=== PATIENT | female | born 1930 | race Caucasian/White ===

== ENCOUNTER 2019-01-08 12:43 | Observation (INO) ==
[2019-01-08] MEDS ORDERED: Ondansetron 4 MG/2 ML VIAL IVP ONE (13:15)
[2019-01-08] MEDS ORDERED: 0.9 % Sodium Chloride 500 ML IVC ONE (13:15)
[2019-01-08 13:43] LABS: Hematocrit 37.8 % (35.3-44.9); Hemoglobin 12.2 g/dL (11.5-15.4); Mean Corpuscular HGB Conc 32.3 g/dL (31.6-35.5); Mean Corpuscular Hemoglobin 31.1 pg (28.0-33.3); Mean Corpuscular Volume 96.4 fL (83.0-100.0); Mean Platelet Volume 9.5 fL (9.4-12.4); Platelet Count 262 K/mcL (140-400); Red Blood Count 3.92 M/mcL (3.82-4.97); Red Cell Distribution Width 12.9 % (11.5-14.5); Segmented Neutrophils % 82.6 %
[2019-01-08 13:44] LABS: Basophils % 0.2 %; Eosinophils % 0.3 %; Immature Granulocytes % 0.4 % (0-4); Lymphocytes # 1.1 K/mcL (0.6-4.6); Lymphocytes % 11.4 %; Monocytes # 0.5 K/mcL (0.0-1.3); Monocytes % 5.1 %; Neutrophils # 7.9 K/mcL (1.6-8.9)
--- NOTE | 2019-01-08 13:48 | Emergency Department Note ---
Disposition Clinical Impression: Difficulty in swallowing, Achalasia of esophagus Disposition: Admitted As Inpatient Condition: Fair General Adult HPI - General Chief complaint: ED General Medical Stated complaint: esophagus issue Time Seen by Provider: 01/08/19 12:53 Source: EMS Limitations: no limitations - History of Present Illness Pain Scale: 0 - Related Data Home Medications Medication Instructions Recorded Confirmed RX: Lisinopril [Zestril] 20 mg PO DAILY 02/24/17 01/08/19 RX: Aspirin [Lo-Dose Aspirin EC] 81 mg PO DAILY 09/08/17 01/08/19 RX: Metoprolol [Lopressor] 12.5 mg PO BID 01/08/19 01/08/19 Rosuvastatin Calcium [Crestor] 10 mg PO DAILY 01/08/19 01/08/19 Previous Rx's Medication Instructions Recorded RX: Clopidogrel [Plavix] 75 mg PO DAILY #30 tablet 09/08/17 Allergies Allergy/AdvReac Type Severity Reaction Status Date / Time No Known Allergies Allergy Verified 01/08/19 12:59 Past Medical History - Past Medical History Medical history: Reports: arthritis, diabetes, hyperlipidemia, hypertension, renal disease Surgical history: Reports: appendectomy, cancer surgery, hysterectomy Psychiatric history: Reports: no psych history - Social History Smoking Status: Former smoker Smokeless Tobacco Status: No Alcohol use: Reports: none Drug use: Reports: none Physical Exam - General Limitations: no limitations General appearance: alert, in no apparent distress Course Vital Signs Temperature 98.5 F 01/08/19 12:46 Pulse Rate 66 01/08/19 12:46 Respiratory Rate 15 01/08/19 12:46 Blood Pressure 141/81 01/08/19 12:46 O2 Sat by Pulse Oximetry 100 01/08/19 12:46 Temperature 98.0 F 01/08/19 19:26 Pulse Rate 65 01/08/19 19:26 Respiratory Rate 14 01/08/19 19:26 Blood Pressure 128/70 01/08/19 19:26 O2 Sat by Pulse Oximetry 93 01/08/19 19:26 Oxygen Delivery Oxygen Delivery Nasal Cannula Medical Decision Making - Lab Data Result diagrams: 01/08/19 13:33 01/08/19 13:33 Lab Results 01/08/19 01/08/19 Range/Units 13:33 13:33 WBC 9.6 (4.3-11.1) K/mcL RBC 3.92 (3.82-4.97) M/mcL Hgb 12.2 (11.5-15.4) g/dL Hct 37.8 (35.3-44.9) % MCV 96.4 (83.0-100.0) fL MCH 31.1 (28.0-33.3) pg MCHC 32.3 (31.6-35.5) g/dL RDW 12.9 (11.5-14.5) % Plt Count 262 (140-400) K/mcL MPV 9.5 (9.4-12.4) fL Immature Gran % 0.4 (0-4) % Seg Neutrophils % 82.6 % Lymphocytes % 11.4 % Monocytes % 5.1 % Eosinophils % 0.3 % Basophils % 0.2 % Neutrophils # 7.9 (1.6-8.9) K/mcL Lymphocytes # 1.1 (0.6-4.6) K/mcL Monocytes # 0.5 (0.0-1.3) K/mcL Eosinophils # 0.0 (0.0-0.6) K/mcL Basophils # 0.0 (0.0-0.2) K/mcL Sodium 140 (136-145) mEq/L Potassium 3.9 (3.5-5.1) mEq/L Chloride 103 (98-107) mEq/L Carbon Dioxide 26 (23-29) mEq/L BUN 27 H (8-23) mg/dL Creatinine 1.23 H (0.60-1.20) mg/dL Est GFR ( Amer) 50 L (> 60) Est GFR (Non-Af Amer) 41 L (> 60) BUN/Creatinine Ratio 22 (6-26) Glucose 103 (70-105) mg/dL Calculated Osmolality 295 (280-300) Calcium 9.4 (8.6-10.3) mg/dL Total Bilirubin 0.7 (0.3-1.0) mg/dL Direct Bilirubin 0.1 (0.0-0.2) mg/dL Indirect Bilirubin 0.6 (0.0-1.2) mg/dL AST 20 (13-39) Units/L ALT 13 (7-52) Units/L Alkaline Phosphatase 74 (34-104) Units/L Troponin I < 0.03 (< 0.04) ng/mL Serum Total Protein 7.6 (6.4-8.9) g/dL Albumin 3.9 (3.5-5.7) g/dL Globulin 3.7 H (2.4-3.5) g/dL Albumin/Globulin Ratio 1.1 (1.1-2.2) Lipase 29 (11-82) Units/L Attestation Statement - Attestation Attestation: I examined this patient and my medical decision-making was reviewed with the Resident Physician. I agree with the documented findings, disposition and treatment plan as described except to the extent set forth below. [id number] time provided Patient resident care of her family. She has a history of esophageal strictures that had required Botox treatment and dilation. Recently she has experienced regurgitation and nausea and vomiting. She appears in no acute distress on exam
[2019-01-08 14:05] LABS: Troponin I < 0.03 ng/mL (< 0.04)
[2019-01-08 14:06] LABS: Alanine Aminotransferase 13 Units/L (7-52); Albumin 3.9 g/dL (3.5-5.7); Albumin/Globulin Ratio 1.1 (1.1-2.2); Alkaline Phosphatase 74 Units/L (34-104); Aspartate Amino Transferase 20 Units/L (13-39); BUN/Creatinine Ratio 22 (6-26); Bilirubin,Direct 0.1 mg/dL (0.0-0.2); Bilirubin,Indirect 0.6 mg/dL (0.0-1.2); Bilirubin,Total 0.7 mg/dL (0.3-1.0); Blood Urea Nitrogen 27 mg/dL (8-23); Calcium 9.4 mg/dL (8.6-10.3); Carbon Dioxide 26 mEq/L (23-29); Chloride 103 mEq/L (98-107); Globulin 3.7 g/dL (2.4-3.5); Glucose 103 mg/dL (70-105); Lipase 29 Units/L (11-82); Osmolality,Calculated 295 (280-300); Potassium 3.9 mEq/L (3.5-5.1); Sodium 140 mEq/L (136-145); Total Protein 7.6 g/dL (6.4-8.9); eGFR For Non-African Americans 41 (> 60)
--- NOTE | 2019-01-08 14:29 | Emergency Department Note ---
Disposition Clinical Impression: Achalasia of esophagus Difficulty in swallowing Qualifiers: Dysphagia type: unspecified Qualified Code(s): R13.10 - Dysphagia, unspecified Disposition: Admitted As Inpatient Condition: Fair Referrals: Christiano Mallory DO [Primary Care Provider] - Forms: ED Satisfaction Letter, Work/School Release Time of Disposition: 15:10 General Adult HPI - General Chief complaint: ED General Medical Stated complaint: esophagus issue Time Seen by Provider: 01/08/19 12:53 Source: EMS Mode of arrival: ambulatory Limitations: no limitations Nursing Notes Reviewed: Yes Vital Signs Reviewed: Yes - History of Present Illness HPI Narrative: Patient is a 88 year old female with a past medical history of arthritis, diabetes, HLD, renal disease, and achalasia presents to the emergency department for evaluation of inability to tolerate by mouth. Patient states back in February 2017 she had an endoscopy in which she had Botox injections and her symptoms have been improved since that time, however recently she is having difficult to with swallowing even applesauce she states every time she tries to drink water or food she throws it back up. She denies any chest pain or abdominal pain or diarrhea. She states that she had an appointment in January with Dr. Ham, however she does not think she can wait that long. Family is also concerned of think that she can wait that long. Pain Scale: 0 - Related Data Home Medications Medication Instructions Recorded Confirmed Lisinopril [Zestril] 20 mg PO DAILY 02/24/17 09/08/17 Aspirin [Lo-Dose Aspirin EC] 81 mg PO DAILY 09/08/17 09/08/17 Previous Rx's Medication Instructions Recorded Atorvastatin Calcium [Lipitor] 20 mg PO DAILY 90 Days #90 tablet 09/08/17 Clopidogrel [Plavix] 75 mg PO DAILY #30 tablet 09/08/17 Metoprolol [Lopressor] 25 mg PO BID 90 Days #180 tablet 09/08/17 Allergies Allergy/AdvReac Type Severity Reaction Status Date / Time No Known Allergies Allergy Verified 01/08/19 12:59 All systems ED: reviewed and negative except as stated. Review of Systems: As Per HPI Constitutional: Denies: fever, chills Cardiovascular: Denies: chest pain, palpitations, dyspnea on exertion Respiratory: Denies: cough, dyspnea, wheezes Gastrointestinal: Reports: nausea, vomiting. Denies: abdominal pain, diarrhea, constipation, hematemesis, melena, hematochezia Musculoskeletal: Denies: back pain Integumentary: Denies: rash Past Medical History - Past Medical History Attestation: Yes The following information was validated with the patient. Medical history: Reports: arthritis, diabetes, hyperlipidemia, hypertension, renal disease Surgical history: Reports: appendectomy, cancer surgery, hysterectomy Psychiatric history: Reports: no psych history - Social History Smoking Status: Former smoker Smokeless Tobacco Status: No Alcohol use: Reports: none Drug use: Reports: none Physical Exam CONSTITUTIONAL: Well-appearing; well-nourished; A&O X 3, in no apparent distress HEAD: Normocephalic; atraumatic EYES: PERRL, no scleral icterus NOSE: The nose is normal in appearance without rhinorrhea MOUTH: Mucus membranes are moist. NECK: No JVD or distended neck veins RESP: Normal chest excursion with respiration; breath sounds clear and equal mary kate aterally; no wheezes, rhonchi, or rales CARD: Regular rhythm, without murmurs, rub or gallop ABD: Non-distended; non-tender, soft, without rigidity, rebound or guarding,no pulsatile mass CHEST: No pain with palpation SKIN: Normal for age and race; warm and dry without diaphoresis ; no apparent lesions EXTREMITIES: Pulses are 2 plus and equal times 4 extremities, no peripheral edema or calf muscle pain - General Limitations: no limitations General appearance: alert, in no apparent distress Course Course Narrative: Patient does have a slight bump in her creatinine from her baseline otherwise her lab work is unremarkable. Plan this time is to consult with GI to determine patient's disposition taking her past medical history in regard patient most likely needs endoscopy for evaluation and treatment of her esophageal strictures. - Reevaluation(s) Reevaluation #1: Discussed the patient's case with the on-call GI person, Isai. He contacted Dr. Otoole, and they had a discussion about the patient states that he will be in house tomorrow doing endoscopies requested that she be admitted for endoscopy in the morning and make sure that she is nothing by mouth at midnight. I discussed this with the patient patient family and they agree with that plan. We will admit the patient to the hospitalist. Time: 15:13 Vital Signs Temperature 98.5 F 01/08/19 12:46 Pulse Rate 66 01/08/19 12:46 Respiratory Rate 15 01/08/19 12:46 Blood Pressure 141/81 01/08/19 12:46 O2 Sat by Pulse Oximetry 100 01/08/19 12:46 Temperature 98.5 F 01/08/19 12:46 Pulse Rate 62 01/08/19 14:07 Respiratory Rate 15 01/08/19 14:07 Blood Pressure 113/83 01/08/19 14:07 O2 Sat by Pulse Oximetry 100 01/08/19 14:07 Oxygen Delivery Oxygen Delivery Nasal Cannula Medical Decision Making - Medical Records Medical records reviewed: Yes I reviewed the patient's medical records. - Lab Data Lab results reviewed: Yes I reviewed the patient's lab results. Result diagrams: 01/08/19 13:33 01/08/19 13:33 Lab Results 01/08/19 01/08/19 Range/Units 13:33 13:33 WBC 9.6 (4.3-11.1) K/mcL RBC 3.92 (3.82-4.97) M/mcL Hgb 12.2 (11.5-15.4) g/dL Hct 37.8 (35.3-44.9) % MCV 96.4 (83.0-100.0) fL MCH 31.1 (28.0-33.3) pg MCHC 32.3 (31.6-35.5) g/dL RDW 12.9 (11.5-14.5) % Plt Count 262 (140-400) K/mcL MPV 9.5 (9.4-12.4) fL Immature Gran % 0.4 (0-4) % Seg Neutrophils % 82.6 % Lymphocytes % 11.4 % Monocytes % 5.1 % Eosinophils % 0.3 % Basophils % 0.2 % Neutrophils # 7.9 (1.6-8.9) K/mcL Lymphocytes # 1.1 (0.6-4.6) K/mcL Monocytes # 0.5 (0.0-1.3) K/mcL Eosinophils # 0.0 (0.0-0.6) K/mcL Basophils # 0.0 (0.0-0.2) K/mcL Sodium 140 (136-145) mEq/L Potassium 3.9 (3.5-5.1) mEq/L Chloride 103 (98-107) mEq/L Carbon Dioxide 26 (23-29) mEq/L BUN 27 H (8-23) mg/dL Creatinine 1.23 H (0.60-1.20) mg/dL Est GFR ( Amer) 50 L (> 60) Est GFR (Non-Af Amer) 41 L (> 60) BUN/Creatinine Ratio 22 (6-26) Glucose 103 (70-105) mg/dL Calculated Osmolality 295 (280-300) Calcium 9.4 (8.6-10.3) mg/dL Total Bilirubin 0.7 (0.3-1.0) mg/dL Direct Bilirubin 0.1 (0.0-0.2) mg/dL Indirect Bilirubin 0.6 (0.0-1.2) mg/dL AST 20 (13-39) Units/L ALT 13 (7-52) Units/L Alkaline Phosphatase 74 (34-104) Units/L Troponin I < 0.03 (< 0.04) ng/mL Serum Total Protein 7.6 (6.4-8.9) g/dL Albumin 3.9 (3.5-5.7) g/dL Globulin 3.7 H (2.4-3.5) g/dL Albumin/Globulin Ratio 1.1 (1.1-2.2) Lipase 29 (11-82) Units/L - EKG Data EKG #1 EKG attestation: Yes I reviewed and interpreted this EKG. EKG results narrative: 13:47 shows sinus rhythm at a rate of 65 bpm. Normal axis. Intervals within normal limits. No signs of ST depressions, elevations or Q waves present. Patient does have inverted T waves in lead 3 however this is unchanged from old EKG in March 2001.
[2019-01-08] MEDS ORDERED: Dextrose Gel 15 GM/37.5 ML TUBE PO PRN ×2 (20:38)
[2019-01-08] MEDS ORDERED: Dextrose 4 GM Chewable Tablets PO PRN ×2 (20:38)
[2019-01-08] MEDS ORDERED: D5% in Water 1,000 ML IVC PRN (20:38)
[2019-01-08] MEDS ORDERED: *HR* Dextrose 50 % in Water (Syg) 50 ML SYRINGE IVP PRN (20:38)
--- NOTE | 2019-01-08 22:35 | Internal Med History&Physical ---
Date of Encounter: 01/08/19 Time of Encounter: 22:35 Internal Medicine - H&P: HPI Chief complaint: Dysphagia History of present illness: Ms. Spain is a 88 year old female with a past medical history of dysphagia, hyperlipidemia, coronary artery disease, diabetes who presented to the ED with complaints of dysphagia. Patient has had issues with dysphagia in the past and history of esophageal strictures and has undergone endoscopy with Botox treatment and dilatation, the last of which she reports was in February 2017. Patient states she has not had any issues up until recently when she began having difficulty swallowing and regurgitating her food which started up some time in November. She states it seems to be more common with solid foods and has been eating mostly Jell-O and pudding; but has had issues with liquids as well. She reports a weight loss of approximately 12 pounds. Patient has a outpatient appointment with Dr. Ham in January however, at this time feels she cannot wait any longer. On arrival patient was afebrile, hemodynamically stable. Lab oratory workup was relatively unremarkable aside from a mild elevation in patient's creatinine. She was given 1 L fluid bolus in the ED. Currently asymptomatic. Past Med Surg Social Fam HX - Past Medical History Medical history: arthritis, diabetes, hyperlipidemia, hypertension, renal disease Additional medical history: No deficits from one TIA around 2015. Psychiatric history: no psych history - Past Surgical History Surgical History: appendectomy, cancer surgery, hysterectomy Additional surgical history: tumor removal, partial hyst - Social History Smoking Status: Former smoker Smokeless Tobacco Status: No Alcohol use: none Drug use: none Internal Medicine - H&P: Meds Lisinopril [Zestril] 20 mg PO DAILY 02/24/17 [History] Aspirin [Lo-Dose Aspirin EC] 81 mg PO DAILY 09/08/17 [History] Clopidogrel [Plavix] 75 mg PO DAILY #30 tablet 09/08/17 [Rx] Metoprolol [Lopressor] 12.5 mg PO BID 01/08/19 [History] Rosuvastatin Calcium [Crestor] 10 mg PO DAILY 01/08/19 [History] Allergy/AdvReac Type Severity Reaction Status Date / Time No Known Allergies Allergy Verified 01/08/19 12:59 All Systems PM: A 10-system review of systems was performed and is negative for pertinent findings except as documented above in the HPI. - Constitutional Constitutional: no chills, no fever(s), no night sweats - EENT Eyes: no change in vision, no discharge, no pain, no photophobia Ears: no ear discharge, no ear pain, no tinnitus Nose, mouth and throat: no dysphagia, no nasal discharge, no neck pain, no sore throat - Cardiovascular Cardiovascular ROS IM: no chest pain, no diaphoresis, no dyspnea, no lightheadedness, no palpitations, no syncope - Respiratory Respiratory: no cough, no dyspnea, no wheezing, no excessive phlegm production - Gastrointestinal Gastrointestinal: no abdominal pain, no diarrhea, no hematemesis, no hematochezia, no melena, no nausea, no vomiting - Genitourinary Genitourinary: no change in urinary stream, no dysuria, no flank pain, no hematuria - Musculoskeletal Musculoskeletal ROS IM: no numbness, no tingling - Integumentary Integumentary IM: no rash, no unusual bruising - Neurological Neurological ROS: no confusion, no convulsions, no focal weakness, no numbness, no tingling, no tremor(s) - Hematologic/Lymphatic Hematologic/Lymphatic: no easy bruising - Constitutional Vitals: Temp Pulse Resp BP Pulse Ox 98.0 F 65 14 128/70 93 01/08/19 19:26 01/08/19 19:26 01/08/19 19:26 01/08/19 19:26 01/08/19 19:26 Exam: General: Alert and oriented 3 lying in bed in no acute distress Skin:Normal color, no rash, no lesions. HEENT:EOM, pupils equal, round and reactive. Cardiovascular:Normal S1 & S2, no rubs, murmurs or gallops. No JVD. Pulse regul ar. Lungs:Normal breath sounds, no wheezes or crackles. Abdomen:Soft, non-tender, no rigidity. Extremities:No deformity, no edema or tenderness, no joint swelling or clubbing. Neurological:Normal cognition and motor skills. Pulses:Carotid and radial pulses normal +2. Rest of the physical exam is non contributory Internal Med - H&P Results - Labs CBC & Chem 7: 01/09/19 03:26 01/09/19 03:26 Labs: Short CBC 01/08/19 Range/Units 13:33 WBC 9.6 (4.3-11.1) K/mcL Hgb 12.2 (11.5-15.4) g/dL Hct 37.8 (35.3-44.9) % Plt Count 262 (140-400) K/mcL Neutrophils # 7.9 (1.6-8.9) K/mcL BMP 01/08/19 13:33 Sodium 140 Potassium 3.9 Chloride 103 Carbon Dioxide 26 BUN 27 H Creatinine 1.23 H Glucose 103 Calcium 9.4 Cardiac Enzymes 01/08/19 Range/Units 13:33 Troponin I < 0.03 (< 0.04) ng/mL Liver Function 01/08/19 Range/Units 13:33 Total Bilirubin 0.7 (0.3-1.0) mg/dL Direct Bilirubin 0.1 (0.0-0.2) mg/dL AST 20 (13-39) Units/L ALT 13 (7-52) Units/L Alkaline Phosphatase 74 (34-104) Units/L Albumin 3.9 (3.5-5.7) g/dL - Assessment and plan (1) Dysphasia Status: Acute Assessment and plan: History of dysphasia with reports of esophageal strictures that appears to have recurred since November. Reports issues keeping food down; primarily solids. Patient reports a 12 pound weight loss. No significant laboratory abnormalities aside from a mild elevation in creatinine. Her serum albumin levels are surprisingly normal. -We will keep patient nothing by mouth for possible EGD -IV fluids -GI consult (2) Acute kidney injury Status: Acute Assessment and plan: Mild elevation in patient's creatinine from baseline likely prerenal in the setting of poor by mouth intake. Patient received fluid bolus in the ED. We will continue patient on maintenance fluids. We will reassess kidney function in the morning. (3) CAD (coronary artery disease) Status: Acute Assessment and plan: History of coronary artery disease with diffuse three-vessel disease receiving medical management for her condition. -Resume home medications after endoscopy Qualifiers: Coronary Disease-Associated Artery/Lesion type: [place] artery [place] vs. transplanted heart: [place] heart Associated angina: without angina Qualified Code(s): I25.10 - Atherosclerotic heart disease of [place] coronary artery without angina pectoris (4) Type 2 diabetes mellitus Status: Acute Assessment and plan: We will start patient on D5 half-normal saline with Accu-Cheks and sliding scale insulin. Qualifiers: Diabetes mellitus residential insulin use: without superintendent [employer] use Diabetes mellitus complication status: without complication Qualified Code(s): E11.9 - Type 2 diabetes mellitus without complications (5) DVT prophylaxis Status: Acute Assessment and plan: Subcutaneous heparin - Time Spent With Patient Total time spent is greater than 50% in coordination of care (as documented) at patient's floor/unit and/or counseling patient:
[2019-01-08] MEDS ORDERED: Naloxone 0.4 MG/ML INJ IVP PRN (23:16)
[2019-01-08] MEDS ORDERED: Ondansetron 4 MG/2 ML VIAL IVP PRN (23:17)
[2019-01-08] MEDS ORDERED: 0.9 % Sodium Chloride 1,000 ML IVC SCH (23:30)
[2019-01-08] MEDS ORDERED: D5% in 0.45% NACL 1,000 ML IVC SCH (23:45)
[2019-01-09 04:35] LABS: Basophils % 0.5 %; Eosinophils # 0.1 K/mcL (0.0-0.6); Eosinophils % 1.1 %; Hematocrit 33.2 % (35.3-44.9); Hemoglobin 10.8 g/dL (11.5-15.4); Immature Granulocytes % 0.3 % (0-4); Lymphocytes # 1.3 K/mcL (0.6-4.6); Lymphocytes % 20.8 %; Mean Corpuscular HGB Conc 32.5 g/dL (31.6-35.5); Mean Corpuscular Hemoglobin 31.6 pg (28.0-33.3); Mean Corpuscular Volume 97.1 fL (83.0-100.0); Monocytes # 0.6 K/mcL (0.0-1.3); Monocytes % 9.6 %; Neutrophils # 4.3 K/mcL (1.6-8.9); Platelet Count 253 K/mcL (140-400); Red Blood Count 3.42 M/mcL (3.82-4.97); Red Cell Distribution Width 13.1 % (11.5-14.5); Segmented Neutrophils % 67.7 %
[2019-01-09 04:41] LABS: INR 1.1; Prothrombin Time 12.2 Seconds (9.4-12.1)
[2019-01-09 04:43] LABS: Activated Partial Thrombo Time 28.4 Seconds (26.0-36.0)
[2019-01-09 04:51] LABS: Albumin 3.3 g/dL (3.5-5.7); Bilirubin,Total 0.6 mg/dL (0.3-1.0); Calcium 8.5 mg/dL (8.6-10.3); Globulin 3.4 g/dL (2.4-3.5); Magnesium 2.2 mg/dL (1.6-2.6); Potassium 3.8 mEq/L (3.5-5.1); Total Protein 6.7 g/dL (6.4-8.9)
[2019-01-09] MEDS: *HR* Heparin 5,000 UNIT/ML VIAL SQ SCH ×2 (05:43→15:25)
--- NOTE | 2019-01-09 09:44 | Anesthesia Evaluation PreOp ---
Date of Encounter: 01/09/19 Time of Encounter: 11:47 - Past History Planned Operation: EGD/Botox Injection Cardiac History: HI, HTN, Hyperlipidemia, Other (diffuse 3 vessel CAD without bypassable targets) Pulmonary History: Former smoker [employer] History: TIA (2016), Syncope Other Medical History: Renal (CKD stage 3), Diabetes Type II Anesthesia History: No Prior Anesthetic Complications, Past Anesthesia Alcohol Use: none Drug use: none Medications and Allergies Lisinopril [Zestril] 20 mg PO DAILY 02/24/17 [History] Aspirin [Lo-Dose Aspirin EC] 81 mg PO DAILY 09/08/17 [History] Clopidogrel [Plavix] 75 mg PO DAILY #30 tablet 09/08/17 [Rx] Metoprolol [Lopressor] 12.5 mg PO BID 01/08/19 [History] Rosuvastatin Calcium [Crestor] 10 mg PO DAILY 01/08/19 [History] Allergy/AdvReac Type Severity Reaction Status Date / Time No Known Allergies Allergy Verified 01/08/19 12:59 - Meds/Allergy Pre-op Review Medications Reviewed: Yes Allergies Reviewed: Yes Beta Blockers on Current Med List: Yes Anesthesia Results - Labs 01/09/19 03:26 01/09/19 03:26 - Imaging EKG: report reviewed (08/11/2017 SINUS RHYTHM WITH FREQUENT VENTRICULAR PREMATURE COMPLEXES BORDERLINE LEFT AXIS DEVIATION POSSIBLE RIGHT VENTRICULAR CONDUCTION DELAY VOLTAGE CRITERIA FOR LVH NONSPECIFIC ST & T-WAVE ABNORMALITY) Additional studies: 09/08/2017 Coronary Angiography Impressions: There is severe three vessel coronary artery disease. Severe distal diffuse disease in the RCA and LAD Occluded Left SFA Recommendations: Optimal medical therapy of patient's disease versus have Elective coronary artery bypass surgery. Aggressive risk factor modification. ASA 81 mg daily Plavix 75 mg daily for one month Lipitor 20 mg daily Metoprolol 25mg twice daily EP Consult for ICD if patient is not a candidate for revascularization (2ry prevention) Echo Impressions: LVEF 60-65%. Normal LV chamber size and function. Mild concentric left ventricular hypertrophy. Mild left ventricular diastolic dysfunction. Normal right ventricular structure and function. Mild pulmonic regurgitation. No evidence of pulmonary hypertension. Anesthesia Exam Vital Signs/O2 Sat/Glucose, Most Recent Temp Pulse Resp BP Pulse Ox 97.8 F 57 14 125/80 99 01/09/19 07:09 01/09/19 07:09 01/09/19 07:09 01/09/19 07:09 01/09/19 07:09 Blood Glucose* 111 Height: 5'1''/1.55m Weight: 110 lbs/49.9 kg NPO (# of Hours): 8 Pain Scale: 0 Pain Scale Used: Numeric (1 - 10) - HEENT Pupil (Motor): EOMI Mallampati: II Teeth: Edentulous Oral Opening: Greater than 3 - [employer] LOC: Oriented [employer] Motor: Normal RUE, Normal LUE, Normal RLE, Normal LLE, Normal Face [employer] Sensory: Normal: RUE, LUE, RLE, LLE, Face - Cardiac Rhythm: Regular Murmur: None - Pulmonary Breath Sounds: bilateral Clear Respiratory Effort: Symmetrical Anesthesia Assess/Plan ASA Score: 4 Level of consciousness: Cooperative, Oriented, Tranquil Anesthetic Plan: MAC Monitoring Plan: Standard Monitors
[2019-01-09] MEDS ORDERED: Propofol 500 MG/50 ML INFUS..BTL ONE ×2 (11:00→11:41)
[2019-01-09] MEDS ORDERED: Lidocaine -MPF 2% 2 ML VIAL ONE (11:40)
--- NOTE | 2019-01-09 13:39 | Internal Med Progress Note ---
Hospitalist Progress Note - Encounter Date of Encounter: 01/09/19 Time of Encounter: 09:00 - Subjective Interval History: Patient laying on bed comfortably, no acute distress. Denies cough or fever. Waiting for GI consult for dysphagia. May need EGD. - Exam Vitals: Temp Pulse Resp BP Pulse Ox 98.3 F 56 12 140/74 100 01/09/19 10:51 01/09/19 12:09 01/09/19 12:09 01/09/19 12:09 01/09/19 12:09 Exam: General: Alert and oriented 3 lying in bed in no acute distress Skin:Normal color, no rash, no lesions. HEENT:EOM, pupils equal, round and reactive. Cardiovascular:Normal S1 & S2, no rubs, murmurs or gallops. No JVD. Pulse regular. Lungs:Normal breath sounds, no wheezes or crackles. Abdomen:Soft, non-tender, no rigidity. Extremities:No deformity, no edema or tenderness, no joint swelling or clubbing. Neurological:Normal cognition and motor skills. Pulses:Carotid and radial pulses normal +2. Rest of the physical exam is non contributory - Assessment and Plan (1) CAD (coronary artery disease) Current Visit: No Status: Acute Assessment and Plan: History of coronary artery disease with diffuse three-vessel disease receiving medical management for her condition. -Resume home medications after endoscopy (2) Dysphasia Current Visit: Yes Status: Acute Assessment and Plan: History of dysphasia with reports of esophageal strictures that appears to have recurred since November. Reports issues keeping food down; primarily solids. Patient reports a 12 pound weight loss. -We will keep patient nothing by mouth for possible EGD -IV fluids -GI consult (3) Acute kidney injury Current Visit: Yes Status: Acute Assessment and Plan: Mild elevation in patient's creatinine from baseline likely prerenal in the setting of poor by mouth intake. Improved now after hydration. Continue close the monitor renal function. Avoid nephrotoxic medications (4) Type 2 diabetes mellitus Current Visit: Yes Status: Acute Assessment and Plan: Glu is at lower side. We will cont patient on D5 half-normal saline with Accu- Cheks and sliding scale insulin. (5) DVT prophylaxis Current Visit: Yes Status: Acute Assessment and Plan: Subcutaneous heparin - Time Spent with Patient Total time spent is greater than 50% in coordination of care (as documented) at patient's floor/unit and/or counseling patient: 30 min 25 - 35 minutes Plan of Care Discussed with: family Internal Medicine: Result - Labs CBC & Chem 7: 01/09/19 03:26 01/09/19 03:26 Labs: Short CBC 01/08/19 01/09/19 Range/Units 13:33 03:26 WBC 9.6 6.3 (4.3-11.1) K/mcL Hgb 12.2 10.8 L (11.5-15.4) g/dL Hct 37.8 33.2 L (35.3-44.9) % Plt Count 262 253 (140-400) K/mcL Neutrophils # 7.9 4.3 (1.6-8.9) K/mcL BMP 01/08/19 01/09/19 13:33 03:26 Sodium 140 142 Potassium 3.9 3.8 Chloride 103 105 Carbon Dioxide 26 29 BUN 27 H 24 H Creatinine 1.23 H 1.07 Glucose 103 115 H Calcium 9.4 8.5 L Cardiac Enzymes 01/08/19 Range/Units 13:33 Troponin I < 0.03 (< 0.04) ng/mL Liver Function 01/08/19 01/09/19 Range/Units 13:33 03:26 Total Bilirubin 0.7 0.6 (0.3-1.0) mg/dL Direct Bilirubin 0.1 (0.0-0.2) mg/dL AST 20 18 (13-39) Units/L ALT 13 11 (7-52) Units/L Alkaline Phosphatase 74 60 (34-104) Units/L Albumin 3.9 3.3 L (3.5-5.7) g/dL - ABG Interpretation ABG results: PT/INR, D-dimer PT 12.2 Seconds (9.4-12.1) H 01/09/19 03:26 Consult Discharge Plan - Plan Referrals: Christiano Mallory DO [Primary Care Provider] - __ (1) CAD (coronary artery disease) Qualifiers: Coronary Disease-Associated Artery/Lesion type: [place] artery [place] vs. transplanted heart: [place] heart Associated angina: without angina Qualified Code(s): I25.10 - Atherosclerotic heart disease of [place] coronary artery witho ut angina pectoris (4) Type 2 diabetes mellitus Qualifiers: Diabetes mellitus termite renewal inspector insulin use: without mcfp use Diabetes mellitus complication status: without complication Qualified Code(s): E11.9 - Type 2 diabetes mellitus without complications
[2019-01-09] MEDS ORDERED: D5% in 0.45% NACL 1,000 ML IVC SCH (13:45)
--- NOTE | 2019-01-09 15:56 | Discharge Summary ---
- NOTES TO OUTPATIENT PROVIDER Notes to Outpatient Provider: 1. F/U with Dr Otoole in 6 Mo Orders not resulted at time of discharge: Pending orders 01/08/19 13:15 Urinalysis Reflex Cult & Micro [URIN] Stat 01/09/19 03:26 Hgb A1C Routine Date of Encounter: 01/09/19 Time of Encounter: 15:00 - Discharge Diagnosis (1) CAD (coronary artery disease) Priority: Secondary Status: Acute Qualifiers: Coronary Disease-Associated Artery/Lesion type: [place] artery [place] vs. transplanted heart: [place] heart Associated angina: without angina Qualified Code(s): I25.10 - Atherosclerotic heart disease of [place] coronary artery without angina pectoris (2) Dysphasia Priority: Primary Status: Acute (3) Acute kidney injury Priority: Secondary Status: Acute (4) Type 2 diabetes mellitus Priority: Secondary Status: Acute Qualifiers: Diabetes mellitus terminal press operator insulin use: without long-term use Diabetes mellitus complication status: without complication Qualified Code(s): E11.9 - Type 2 diabetes mellitus without complications (5) DVT prophylaxis Priority: Secondary Status: Acute Hospital course: Ms. Spain is a 88 year old female present to ER for dysphagia. The patient has history of dysphagia need Botox injection by GI. Patient was seen by GI doctor and had EGD today. After EGD, patient was a placed on clear liquid diet. So far tolerated well. Discussed with GI physician Dr Otoole, patient can be discharged home if tolerated clear liquid diet. Keep liquid diet, repeated EGD in [address] Otoole talked with family regarding the diet andfollow up plan already. I have seen and examined the patient. Pleasant on clear liquid diet, no choking, no cough. Vitals are stable. Will DC patient home and continue follow-up as outpatient Discharge discussed with: family - Time Spent with Patient Total time spent providing and/or coordinating discharge services: 25 minutes Less than 30 minutes - Discharge Medications Home Medications: Lisinopril [Zestril] 20 mg PO DAILY 02/24/17 [History] Aspirin [Lo-Dose Aspirin EC] 81 mg PO DAILY 09/08/17 [History] Clopidogrel [Plavix] 75 mg PO DAILY #30 tablet 09/08/17 [Rx] Metoprolol [Lopressor] 12.5 mg PO BID 01/08/19 [History] Rosuvastatin Calcium [Crestor] 10 mg PO DAILY 01/08/19 [History] Allergies/Adverse Reactions: Allergy/AdvReac Type Severity Reaction Status Date / Time No Known Allergies Allergy Verified 01/08/19 12:59 Date of admission: 01/08/19 15:56 Primary care physician: Tanner Mallory DO Consults: 01/08/19 15:07 Consult to Gastroenterology [CONS] Stat Consulting Provider: Gastroenterology Yuliya Reason for Consult: Endoscopy for esophageal stricture Time Notified: 15:08 Call Completed: Yes 01/08/19 17:34 Consult to Nutrition [CONS] Routine Comment: Pt lost 20 pounds since September 2018. Consulting Provider: NUTRITION Reason for Dietary Consult: MST Score Other:: Patient unable to hold food/liquids down. Discharging clinician: Alex Ricardo Anticipated date of discharge: 01/09/19 - Constitutional Vitals: Temp Pulse Resp BP Pulse Ox 98.3 F 56 12 140/74 100 01/09/19 10:51 01/09/19 12:09 01/09/19 12:09 01/09/19 12:09 01/09/19 12:09 Exam: General: Alert and oriented 3 lying in bed in no acute distress Skin:Normal color, no rash, no lesions. HEENT:EOM, pupils equal, round and reactive. Cardiovascular:Normal S1 & S2, no rubs, murmurs or gallops. No JVD. Pulse regular. Lungs:Normal breath sounds, no wheezes or crackles. Abdomen:Soft, non-tender, no rigidity. Extremities:No deformity, no edema or tenderness, no joint swelling or clubbing. Neurological:Normal cognition and motor skills. Pulses:Carotid and radial pulses normal +2. Rest of the physical exam is non contributory - Patient Status Disposition: Home, Self-Care Condition: Good Functional capacity at discharge: uses cane/walker Overall status at discharge: patient is back to baseline - Discharge Instructions Follow Up With: Christiano Mallory DO [Primary Care Provider] - - Diet and Activity Activity: increase activity as tolerated Diet: other (Clear liquid diet)
[2019-01-09 16:31] VITALS: BP 184/92
--- NOTE | 2019-01-09 22:03 | Electrocardiograph Report ---
[place] [id number] Test Date: 2019-01-08 Pat Name: Kaiden Spain Department: EXAM9 Room: 3A16 Gender: F Etl Lead: : 1930 Requested By: Jorge Gregg Order Number: [id number] Reading MD: Hernán Gallegos Measurements Intervals Sharon Rate: 65 P: 58 DE: 214 QRS: 48 QRSD: 111 T: 8 QT: 434 QTc: 452 Interpretive Statements Sinus rhythmwith first degree AV block Incomplete right bundle branch block Nonspecific T abnormalities, anterior leads Electronically Signed On 01-09-2019 22:02:47 EST by Hernán Gallegos
[2019-01-10 06:55] LABS: Estimated Average Glucose 151 mg/dl; Hemoglobin A1C 6.9 %
== END 2019-01-09 17:30 | disposition home or self-care (01) ==
LOC: 3ANU 12:43 → EMEROOARM 12:43 → 3ANU 16:42
PROVIDERS: ADMIT Internal Medicine; ATTEND Internal Medicine

== ENCOUNTER 2019-08-31 14:22 | Inpatient (IN) ==
[2019-08-31 15:48] LABS: Basophils % 0.3 %; Eosinophils # 0.1 K/mcL (0.0-0.6); Eosinophils % 1.2 %; Hematocrit 37.6 % (35.3-44.9); Hemoglobin 12.7 g/dL (11.5-15.4); Immature Granulocytes % 0.3 % (0-4); Lymphocytes # 1.2 K/mcL (0.6-4.6); Lymphocytes % 12.3 %; Mean Corpuscular HGB Conc 33.8 g/dL (31.6-35.5); Mean Corpuscular Hemoglobin 33.2 pg (28.0-33.3); Mean Corpuscular Volume 98.4 fL (83.0-100.0); Monocytes # 0.6 K/mcL (0.0-1.3); Monocytes % 5.7 %; Neutrophils # 7.8 K/mcL (1.6-8.9); Platelet Count 229 K/mcL (140-400); Red Blood Count 3.82 M/mcL (3.82-4.97); Red Cell Distribution Width 12.7 % (11.5-14.5); Segmented Neutrophils % 80.2 %; White Blood Count 9.7 K/mcL (4.3-11.1)
[2019-08-31 16:04] LABS: Prothrombin Time 11.4 Seconds (9.4-12.1)
[2019-08-31 16:09] LABS: BUN/Creatinine Ratio 24 (6-26); Blood Urea Nitrogen 25 mg/dL (8-23); Calcium 9.2 mg/dL (8.6-10.3); Carbon Dioxide 25 mEq/L (23-29); Chloride 107 mEq/L (98-107); Glucose 133 mg/dL (70-105); Osmolality,Calculated 290 (280-300); Potassium 4.1 mEq/L (3.5-5.1); Sodium 137 mEq/L (136-145); Troponin I < 0.03 ng/mL (< 0.04); eGFR For African Americans > 60 (> 60); eGFR For Non-African Americans 50 (> 60)
[2019-08-31] MEDS ORDERED: *HR* HYDROcodone/Acet 5/325 mg TABLET PO ONE (16:20)
[2019-08-31] MEDS ORDERED: D5% in Water 1,000 ML IVC PRN (17:50)
[2019-08-31] MEDS ORDERED: *HR* Dextrose 50 % in Water (Syg) 50 ML SYRINGE IVP PRN (17:50)
[2019-08-31] MEDS ORDERED: Dextrose Gel 15 GM/37.5 ML TUBE PO PRN ×2 (17:50)
[2019-08-31] MEDS ORDERED: Naloxone 0.4 MG/ML INJ IVP PRN (17:51)
[2019-08-31] MEDS: Insulin LISPRO 300 UNITS/3 ML VIAL SQ SCH (18:55)
[2019-08-31] MEDS: Acetaminophen 325 MG TABLET PO PRN (21:30)
[2019-08-31 21:48] LABS: Bilirubin,Urine Negative (Negative); Blood,Urine Negative (Negative); Clarity,Urine Cloudy (Clear); Color,Urine Yellow (Yellow); Glucose,Urine (UA) 100 mg/dL (Normal); Ketones,Urine Trace mg/dL (Negative); Leukocyte Esterase,Urine Small (Negative); Nitrite,Urine Negative (Negative); PH,Urine 5.5 pH Units (5.0-8.0); Protein,Urine Trace mg/dL (Neg-Trace); Specific Gravity,Urine 1.022 (1.010-1.025); Urobilinogen,Urine Normal (Normal)
[2019-08-31 21:50] LABS: Bacteria,Urine Few per hpf (None-Few); Hyaline Casts,Urine None Seen per lpf (None-Few); Squamous Epithelial Cell,Urine Many per lpf (None-Few)
[2019-09-01] MEDS: Insulin LISPRO 300 UNITS/3 ML VIAL SQ SCH ×2 (00:48→05:01)
[2019-09-01 05:36] LABS: Basophils % 0.3 %; Eosinophils # 0.4 K/mcL (0.0-0.6); Eosinophils % 4.1 %; Hematocrit 34.3 % (35.3-44.9); Hemoglobin 11.4 g/dL (11.5-15.4); Immature Granulocytes % 0.3 % (0-4); Lymphocytes # 1.3 K/mcL (0.6-4.6); Lymphocytes % 14.9 %; Mean Corpuscular HGB Conc 33.2 g/dL (31.6-35.5); Mean Corpuscular Hemoglobin 32.3 pg (28.0-33.3); Mean Corpuscular Volume 97.2 fL (83.0-100.0); Mean Platelet Volume 9.4 fL (9.4-12.4); Monocytes # 0.7 K/mcL (0.0-1.3); Monocytes % 7.4 %; Neutrophils # 6.5 K/mcL (1.6-8.9); Platelet Count 215 K/mcL (140-400); Red Blood Count 3.53 M/mcL (3.82-4.97); Red Cell Distribution Width 12.7 % (11.5-14.5); White Blood Count 8.9 K/mcL (4.3-11.1)
[2019-09-01 05:45] LABS: INR 1.1; Prothrombin Time 12.5 Seconds (9.4-12.1)
[2019-09-01 05:51] LABS: BUN/Creatinine Ratio 21 (6-26); Blood Urea Nitrogen 21 mg/dL (8-23); Calcium 8.7 mg/dL (8.6-10.3); Carbon Dioxide 24 mEq/L (23-29); Chloride 106 mEq/L (98-107); Glucose 129 mg/dL (70-105); Osmolality,Calculated 289 (280-300); Sodium 137 mEq/L (136-145); eGFR For African Americans > 60 (> 60); eGFR For Non-African Americans 51 (> 60)
[2019-09-01] MEDS ORDERED: Lisinopril 20 MG TABLET PO SCH (09:00)
[2019-09-01] MEDS ORDERED: Aspirin Enteric Coated 81 MG Tablet PO SCH (09:00)
[2019-09-01] MEDS: Acetaminophen 325 MG TABLET PO PRN (09:46)
[2019-09-01] MEDS ORDERED: *HR* HYDROcodone/Acet 5/325 mg TABLET PO PRN (12:05)
[2019-09-01] MEDS ORDERED: *HR* OxyCODONE Immed Rel 5 MG TABLET PO PRN ×2 (12:05→20:04)
[2019-09-01] MEDS ORDERED: Naloxone 0.4 MG/ML INJ IVP PRN ×2 (12:05→20:04)
[2019-09-01] MEDS ORDERED: Acetaminophen 325 MG TABLET PO PRN ×2 (12:07→20:04)
[2019-09-01] MEDS ORDERED: Propofol 500 MG/50 ML INFUS..BTL ONE (18:04)
[2019-09-01] MEDS ORDERED: Lidocaine -MPF 2% 2 ML VIAL ONE (18:04)
[2019-09-01] MEDS ORDERED: *HR* Propofol 200 MG/20 ML VIAL IVP ONE (18:05)
[2019-09-01] MEDS ORDERED: *HR* FentaNYL (PF) 100 MCG/2 ML VIAL ONE (18:06)
[2019-09-01] MEDS ORDERED: Ropivacaine/PF 0.5% 30 ML VIAL ONE (18:10)
[2019-09-01] MEDS ORDERED: ROPIVACAINE/PF/NS 0.25% 1 EACH SYRINGE INTRAART ONE (18:10)
[2019-09-01] MEDS ORDERED: ceFAZolin 2,000 MG in Water for inj. (sterile) 20 ML IVP ONE (18:49)
[2019-09-01] MEDS ORDERED: *HR* PHENYLEPHRINE 1,000 MCG/10 ML SYRINGE IVP ONE (19:11)
[2019-09-01] MEDS ORDERED: *HR* Dextrose 50 % in Water (Syg) 50 ML SYRINGE IVP PRN (20:04)
[2019-09-01] MEDS ORDERED: Dextrose Gel 15 GM/37.5 ML TUBE PO PRN ×2 (20:04)
[2019-09-01] MEDS ORDERED: D5% in Water 1,000 ML IVC PRN (20:04)
[2019-09-02] MEDS: Insulin LISPRO 300 UNITS/3 ML VIAL SQ SCH ×6 (00:45→23:19)
[2019-09-02 05:43] LABS: Basophils % 0.1 %; Hemoglobin 10.2 g/dL (11.5-15.4); Immature Granulocytes % 0.3 % (0-4); Lymphocytes # 0.9 K/mcL (0.6-4.6); Lymphocytes % 12.4 %; Mean Corpuscular HGB Conc 32.9 g/dL (31.6-35.5); Mean Corpuscular Hemoglobin 33.3 pg (28.0-33.3); Mean Corpuscular Volume 101.3 fL (83.0-100.0); Mean Platelet Volume 9.6 fL (9.4-12.4); Monocytes # 0.2 K/mcL (0.0-1.3); Monocytes % 3.5 %; Neutrophils # 5.8 K/mcL (1.6-8.9); Platelet Count 211 K/mcL (140-400); Red Blood Count 3.06 M/mcL (3.82-4.97); Red Cell Distribution Width 12.6 % (11.5-14.5); Segmented Neutrophils % 83.7 %; White Blood Count 6.9 K/mcL (4.3-11.1)
[2019-09-02 06:02] LABS: Calcium 8.6 mg/dL (8.6-10.3); Potassium 4.7 mEq/L (3.5-5.1)
[2019-09-02] MEDS ORDERED: ceFAZolin 2,000 MG in 0.9 % Sodium Chloride 100 ML IVPB SCH (08:00)
[2019-09-02] MEDS: Aspirin Enteric Coated 81 MG Tablet PO SCH (09:03)
[2019-09-02] MEDS: Lisinopril 20 MG TABLET PO SCH (09:04)
[2019-09-02] MEDS: 0.9 % Sodium Chloride 1,000 ML IVC SCH ×2 (12:01→22:14)
[2019-09-02] MEDS ORDERED: Menthol 9.1 MG LOZENGE PO PRN (21:35)
[2019-09-02] MEDS: *HR* HYDROcodone/Acet 5/325 mg TABLET PO PRN (22:12)
[2019-09-03] MEDS: Insulin LISPRO 300 UNITS/3 ML VIAL SQ SCH ×3 (06:26→17:31)
[2019-09-03 07:27] LABS: Basophils % 0.2 %; Eosinophils # 0.2 K/mcL (0.0-0.6); Eosinophils % 2.2 %; Hematocrit 25.4 % (35.3-44.9); Immature Granulocytes % 0.3 % (0-4); Lymphocytes # 1.5 K/mcL (0.6-4.6); Lymphocytes % 17.3 %; Mean Corpuscular HGB Conc 32.3 g/dL (31.6-35.5); Mean Corpuscular Hemoglobin 32.8 pg (28.0-33.3); Mean Corpuscular Volume 101.6 fL (83.0-100.0); Mean Platelet Volume 9.6 fL (9.4-12.4); Monocytes # 0.6 K/mcL (0.0-1.3); Monocytes % 6.5 %; Neutrophils # 6.4 K/mcL (1.6-8.9); Platelet Count 180 K/mcL (140-400); Red Cell Distribution Width 12.8 % (11.5-14.5); Segmented Neutrophils % 73.5 %; White Blood Count 8.7 K/mcL (4.3-11.1)
[2019-09-03 07:28] LABS: Hemoglobin 8.2 g/dL (11.5-15.4)
[2019-09-03 07:47] LABS: Calcium 7.9 mg/dL (8.6-10.3); Potassium 4.1 mEq/L (3.5-5.1)
[2019-09-03] MEDS: 0.9 % Sodium Chloride 1,000 ML IVC SCH (09:24)
[2019-09-03] MEDS: Aspirin Enteric Coated 81 MG Tablet PO SCH (09:27)
[2019-09-03 17:21] LABS: Hematocrit 24.5 % (35.3-44.9); Hemoglobin 7.9 g/dL (11.5-15.4)
[2019-09-03 23:25] LABS: Hematocrit 23.7 % (35.3-44.9); Hemoglobin 7.8 g/dL (11.5-15.4)
[2019-09-04 04:12] LABS: Hematocrit 24.8 % (35.3-44.9); Hemoglobin 8.2 g/dL (11.5-15.4); Mean Corpuscular HGB Conc 33.1 g/dL (31.6-35.5); Mean Corpuscular Hemoglobin 32.8 pg (28.0-33.3); Mean Corpuscular Volume 99.2 fL (83.0-100.0); Mean Platelet Volume 9.4 fL (9.4-12.4); Platelet Count 170 K/mcL (140-400); Red Cell Distribution Width 12.6 % (11.5-14.5); White Blood Count 8.2 K/mcL (4.3-11.1)
[2019-09-04 04:31] LABS: Calcium 8.1 mg/dL (8.6-10.3)
[2019-09-04] MEDS: Insulin LISPRO 300 UNITS/3 ML VIAL SQ SCH ×3 (07:31→17:07)
[2019-09-04] MEDS: Lisinopril 20 MG TABLET PO SCH (10:43)
[2019-09-04] MEDS: Aspirin Enteric Coated 81 MG Tablet PO SCH (10:43)
[2019-09-04] MEDS: Iron Sucrose Complex 250 MG in 0.9 % Sodium Chloride 250 ML IVPB SCH (10:44)
[2019-09-04] MEDS ORDERED: Insulin LISPRO 300 UNITS/3 ML VIAL SQ SCH (21:00)
[2019-09-04] MEDS: *HR* HYDROcodone/Acet 5/325 mg TABLET PO PRN (21:39)
[2019-09-05] MEDS: Insulin LISPRO 300 UNITS/3 ML VIAL SQ SCH (08:38)
[2019-09-05] MEDS: Lisinopril 20 MG TABLET PO SCH (09:11)
[2019-09-05] MEDS: Aspirin Enteric Coated 81 MG Tablet PO SCH (09:11)
[2019-09-05] MEDS: Iron Sucrose Complex 250 MG in 0.9 % Sodium Chloride 250 ML IVPB SCH (09:13)
[2019-09-05 12:42] VITALS: BP 160/79
[2019-09-05] MEDS ORDERED: FLU Vac QV 19-20 (6Month+)/PF 0.5 ML SYRINGE IM ONE (15:10)
== END 2019-09-05 15:45 | DRG 493 ==
LOC: 3NENU 14:22 → EMEROOARM 14:22 → SUATTDRO 17:01 → 3NENU 18:15
PROVIDERS: ADMIT Internal Medicine; ATTEND Student in an Organized Health Care Education/Training Program

== ENCOUNTER 2019-10-08 23:56 | Inpatient (IN) ==
[2019-10-09] MEDS ORDERED: Pantoprazole 40 MG VIAL IVP ONE (00:06)
[2019-10-09 00:32] LABS: Basophils % 0.3 %; Eosinophils % 0.1 %; Hematocrit 38.9 % (35.3-44.9); Hemoglobin 12.6 g/dL (11.5-15.4); Immature Granulocytes % 0.3 % (0-4); Lymphocytes # 0.8 K/mcL (0.6-4.6); Lymphocytes % 6.8 %; Mean Corpuscular HGB Conc 32.4 g/dL (31.6-35.5); Mean Corpuscular Hemoglobin 32.9 pg (28.0-33.3); Mean Corpuscular Volume 101.6 fL (83.0-100.0); Mean Platelet Volume 9.5 fL (9.4-12.4); Monocytes # 0.4 K/mcL (0.0-1.3); Monocytes % 3.6 %; Neutrophils # 10.3 K/mcL (1.6-8.9); Platelet Count 318 K/mcL (140-400); Red Blood Count 3.83 M/mcL (3.82-4.97); Red Cell Distribution Width 13.2 % (11.5-14.5); Segmented Neutrophils % 88.9 %; White Blood Count 11.5 K/mcL (4.3-11.1)
[2019-10-09 00:34] LABS: INR 1.2; Prothrombin Time 13.9 Seconds (9.4-12.1)
[2019-10-09 00:37] LABS: Activated Partial Thrombo Time 25.3 Seconds (26.0-36.0)
[2019-10-09 00:51] LABS: Albumin 3.6 g/dL (3.5-5.7); Albumin/Globulin Ratio 1.1 (1.1-2.2); Bilirubin,Direct 0.2 mg/dL (0.0-0.2); Bilirubin,Indirect 0.3 mg/dL (0.0-1.0); Bilirubin,Total 0.5 mg/dL (0.3-1.0); Globulin 3.3 g/dL (2.4-3.5); Total Protein 6.9 g/dL (6.4-8.9)
[2019-10-09 00:52] LABS: BUN/Creatinine Ratio 35 (6-26); Blood Urea Nitrogen 32 mg/dL (8-23); Carbon Dioxide 19 mEq/L (23-29); Chloride 105 mEq/L (98-107); Glucose 172 mg/dL (70-105); Osmolality,Calculated 297 (280-300); Potassium 3.8 mEq/L (3.5-5.1); Sodium 138 mEq/L (136-145); eGFR For African Americans > 60 (> 60); eGFR For Non-African Americans 58 (> 60)
[2019-10-09 00:53] LABS: Troponin I 0.03 ng/mL (< 0.04)
[2019-10-09] MEDS ORDERED: 0.9 % Sodium Chloride 1,000 ML IVC ONE (01:31)
[2019-10-09] MEDS ORDERED: Isovue-370 500 ML BOTTLE IVP ONE (01:31)
[2019-10-09] MEDS ORDERED: cefTRIAXone 1,000 MG in 0.9 % Sodium Chloride Mini Bag 100 ML IVPB ONE (05:21)
[2019-10-09] MEDS ORDERED: Pantoprazole 40 MG VIAL IVP SCH (06:00)
[2019-10-09] MEDS ORDERED: Naloxone 0.4 MG/ML INJ IVP PRN (07:20)
[2019-10-09] MEDS ORDERED: *HR* Metoprolol 5 MG/5 ML VIAL IVP PRN (13:14)
[2019-10-10 04:09] LABS: Hematocrit 28.1 % (35.3-44.9); Mean Corpuscular HGB Conc 32.7 g/dL (31.6-35.5); Mean Corpuscular Hemoglobin 33.1 pg (28.0-33.3); Mean Corpuscular Volume 101.1 fL (83.0-100.0); Mean Platelet Volume 10.2 fL (9.4-12.4); Platelet Count 297 K/mcL (140-400); Red Blood Count 2.78 M/mcL (3.82-4.97); Red Cell Distribution Width 13.5 % (11.5-14.5); White Blood Count 9.1 K/mcL (4.3-11.1)
[2019-10-10 04:11] LABS: Hemoglobin 9.2 g/dL (11.5-15.4)
[2019-10-10 04:30] LABS: BUN/Creatinine Ratio 52 (6-26); Blood Urea Nitrogen 42 mg/dL (8-23); Calcium 8.4 mg/dL (8.6-10.3); Carbon Dioxide 21 mEq/L (23-29); Chloride 111 mEq/L (98-107); Glucose 103 mg/dL (70-105); Osmolality,Calculated 305 (280-300); Potassium 3.5 mEq/L (3.5-5.1); Sodium 142 mEq/L (136-145); eGFR For African Americans > 60 (> 60); eGFR For Non-African Americans > 60 (> 60)
[2019-10-10] MEDS ORDERED: *HR* HYDROcodone/Acet 5/325 mg TABLET PO PRN (13:04)
[2019-10-10] MEDS ORDERED: Acetaminophen IV 1,000 MG/100 ML INFUS..BTL IVPB ONE (13:08)
[2019-10-10 13:40] LABS: Magnesium 2.2 mg/dL (1.6-2.6)
[2019-10-11 06:03] LABS: Basophils % 0.3 %; Eosinophils # 0.1 K/mcL (0.0-0.6); Eosinophils % 0.5 %; Hematocrit 28.1 % (35.3-44.9); Hemoglobin 8.8 g/dL (11.5-15.4); Immature Granulocytes % 1.4 % (0-4); Lymphocytes # 1.8 K/mcL (0.6-4.6); Lymphocytes % 17.8 %; Mean Corpuscular HGB Conc 31.3 g/dL (31.6-35.5); Mean Corpuscular Hemoglobin 32.8 pg (28.0-33.3); Mean Corpuscular Volume 104.9 fL (83.0-100.0); Mean Platelet Volume 9.8 fL (9.4-12.4); Monocytes # 0.7 K/mcL (0.0-1.3); Monocytes % 6.7 %; Neutrophils # 7.4 K/mcL (1.6-8.9); Platelet Count 292 K/mcL (140-400); Red Blood Count 2.68 M/mcL (3.82-4.97); Red Cell Distribution Width 13.7 % (11.5-14.5); Segmented Neutrophils % 73.3 %; White Blood Count 10.1 K/mcL (4.3-11.1)
[2019-10-11 06:22] LABS: BUN/Creatinine Ratio 45 (6-26); Blood Urea Nitrogen 40 mg/dL (8-23); Calcium 8.6 mg/dL (8.6-10.3); Carbon Dioxide 25 mEq/L (23-29); Chloride 111 mEq/L (98-107); Glucose 115 mg/dL (70-105); Osmolality,Calculated 311 (280-300); Potassium 3.8 mEq/L (3.5-5.1); Sodium 145 mEq/L (136-145); eGFR For African Americans > 60 (> 60); eGFR For Non-African Americans 60 (> 60)
[2019-10-11] MEDS: 0.9 % Sodium Chloride 1,000 ML IVC SCH ×2 (09:02→18:26)
[2019-10-11] MEDS ORDERED: *HR* Propofol 200 MG/20 ML VIAL IVP ONE (12:49)
[2019-10-11] MEDS ORDERED: Lidocaine -MPF 2% 2 ML VIAL ONE (12:50)
[2019-10-11] MEDS ORDERED: *HR* Succinylcholine 200 MG/10 ML VIAL IVP ONE (13:37)
[2019-10-11] MEDS ORDERED: *HR* PHENYLEPHRINE 1,000 MCG/10 ML SYRINGE IVP ONE ×4 (13:37→14:51)
[2019-10-11] MEDS ORDERED: Esmolol 100 MG/10 ML VIAL IVP ONE (13:57)
[2019-10-11] MEDS ORDERED: Ondansetron 4 MG/2 ML VIAL ONE (14:12)
[2019-10-11] MEDS ORDERED: *HR* FentaNYL (PF) 100 MCG/2 ML VIAL ONE (14:29)
[2019-10-11] MEDS ORDERED: *HR* Rocuronium Bromide 50 MG/5 ML VIAL ONE (14:31)
[2019-10-11] MEDS ORDERED: Artificial Tears SOLN 15 ML BOTTLE BOTH EYES PRN (15:53)
[2019-10-11] MEDS: FentaNYL (PF) 1,000 MCG in 0.9 % Sodium Chloride 80 ML IVC SCH (16:24)
[2019-10-11] MEDS: Artificial Tears SOLN 15 ML BOTTLE BOTH EYES SCH ×3 (16:53→23:12)
[2019-10-11 18:15] LABS: ABG Base Excess -2 mEq/L (-2 to 3); ABG HCO3 23 mEq/L (21-27); ABG Oxygen Saturation 98 % (95-98); ABG PCO2 36 mmHg (35-45); ABG PH 7.41 pH Units (7.32-7.45); ABG PO2 107 mmHg (85-104); ABG TCO2 24 mEq/L (20-26); Blood Gas Modality AF; Blood Gas VT 350 cc
[2019-10-11] MEDS: Chlorhexidine Rinse 15 ML MOUTHWASH MM SCH (20:01)
[2019-10-11 20:38] LABS: Hematocrit 26.1 % (35.3-44.9); Hemoglobin 8.3 g/dL (11.5-15.4); Mean Corpuscular HGB Conc 31.8 g/dL (31.6-35.5); Mean Corpuscular Hemoglobin 33.3 pg (28.0-33.3); Mean Corpuscular Volume 104.8 fL (83.0-100.0); Mean Platelet Volume 9.8 fL (9.4-12.4); Platelet Count 193 K/mcL (140-400); Red Blood Count 2.49 M/mcL (3.82-4.97); Red Cell Distribution Width 13.8 % (11.5-14.5); White Blood Count 10.9 K/mcL (4.3-11.1)
[2019-10-11] MEDS: *HR* Metoprolol 5 MG/5 ML VIAL IVP PRN (21:19)
[2019-10-12] MEDS: Artificial Tears SOLN 15 ML BOTTLE BOTH EYES SCH ×6 (03:07→23:12)
[2019-10-12 04:38] LABS: ABG Base Excess -2 mEq/L (-2 to 3); ABG HCO3 22 mEq/L (21-27); ABG Oxygen Saturation 98 % (95-98); ABG PCO2 34 mmHg (35-45); ABG PH 7.43 pH Units (7.32-7.45); ABG PO2 100 mmHg (85-104); ABG TCO2 23 mEq/L (20-26); Blood Gas Modality ASSIST CONTROL; Blood Gas VT 350 cc
[2019-10-12 05:28] LABS: VBG Ionized Calcium 1.05 mmol/L (1.15-1.35)
[2019-10-12 05:48] LABS: BUN/Creatinine Ratio 44 (6-26); Blood Urea Nitrogen 30 mg/dL (8-23); Calcium 7.9 mg/dL (8.6-10.3); Carbon Dioxide 20 mEq/L (23-29); Chloride 113 mEq/L (98-107); Glucose 95 mg/dL (70-105); Osmolality,Calculated 306 (280-300); Potassium 4.1 mEq/L (3.5-5.1); Sodium 145 mEq/L (136-145); eGFR For African Americans > 60 (> 60); eGFR For Non-African Americans > 60 (> 60)
[2019-10-12 06:18] LABS: Basophils % 0.2 %; Eosinophils % 0.2 %; Hematocrit 26.3 % (35.3-44.9); Hemoglobin 8.6 g/dL (11.5-15.4); Immature Granulocytes % 0.8 % (0-4); Lymphocytes # 1.5 K/mcL (0.6-4.6); Lymphocytes % 11.4 %; Mean Corpuscular HGB Conc 32.7 g/dL (31.6-35.5); Mean Corpuscular Hemoglobin 33.5 pg (28.0-33.3); Mean Corpuscular Volume 102.3 fL (83.0-100.0); Mean Platelet Volume 9.8 fL (9.4-12.4); Monocytes # 0.8 K/mcL (0.0-1.3); Monocytes % 6.2 %; Neutrophils # 10.8 K/mcL (1.6-8.9); Platelet Count 284 K/mcL (140-400); Red Blood Count 2.57 M/mcL (3.82-4.97); Red Cell Distribution Width 13.8 % (11.5-14.5); Segmented Neutrophils % 81.2 %; White Blood Count 13.2 K/mcL (4.3-11.1)
[2019-10-12 06:21] LABS: INR 1.4; Prothrombin Time 15.5 Seconds (9.4-12.1)
[2019-10-12] MEDS: Pantoprazole 40 MG VIAL IVP SCH (07:32)
[2019-10-12] MEDS: Chlorhexidine Rinse 15 ML MOUTHWASH MM SCH ×2 (07:32→19:39)
[2019-10-12] MEDS: D5% in Lactated Ringers 1,000 ML IVC SCH (10:22)
[2019-10-12] MEDS: Dexmedetomidine HCl 400 MCG/100 ML MLS IVC SCH (11:36)
[2019-10-12] MEDS: Calcium Gluconate 1gm/50mL 1 GM/50 ML BAG IVPB SCH ×2 (14:32→15:32)
[2019-10-12 15:00] LABS: Hemoglobin 7.5 g/dL (11.5-15.4)
[2019-10-12] MEDS: Ampicillin/Sulbactam 3,000 MG in 0.9 % Sodium Chloride Mini Bag 100 ML IVPB SCH ×3 (15:57→23:16)
[2019-10-12] MEDS: FentaNYL (PF) 1,000 MCG in 0.9 % Sodium Chloride 80 ML IVC SCH ×2 (16:11→17:48)
[2019-10-13] MEDS: Artificial Tears SOLN 15 ML BOTTLE BOTH EYES SCH ×2 (03:18→09:00)
[2019-10-13 04:38] LABS: ABG Base Excess 1 mEq/L (-2 to 3); ABG HCO3 24 mEq/L (21-27); ABG Oxygen Saturation 99 % (95-98); ABG PCO2 32 mmHg (35-45); ABG PH 7.49 pH Units (7.32-7.45); ABG PO2 126 mmHg (85-104); ABG TCO2 25 mEq/L (20-26); Blood Gas Modality ASSIST CONTROL; Blood Gas VT 350 cc
[2019-10-13 04:50] LABS: VBG Ionized Calcium 1.23 mmol/L (1.15-1.35)
[2019-10-13 04:51] LABS: Basophils % 0.1 %; Eosinophils # 0.1 K/mcL (0.0-0.6); Eosinophils % 0.7 %; Hematocrit 25.2 % (35.3-44.9); Hemoglobin 8.2 g/dL (11.5-15.4); Immature Granulocytes % 0.9 % (0-4); Lymphocytes # 1.7 K/mcL (0.6-4.6); Lymphocytes % 16.4 %; Mean Corpuscular HGB Conc 32.5 g/dL (31.6-35.5); Mean Corpuscular Hemoglobin 33.1 pg (28.0-33.3); Mean Corpuscular Volume 101.6 fL (83.0-100.0); Mean Platelet Volume 9.6 fL (9.4-12.4); Monocytes # 0.6 K/mcL (0.0-1.3); Monocytes % 5.6 %; Neutrophils # 7.9 K/mcL (1.6-8.9); Platelet Count 262 K/mcL (140-400); Red Blood Count 2.48 M/mcL (3.82-4.97); Red Cell Distribution Width 13.8 % (11.5-14.5); Segmented Neutrophils % 76.3 %; White Blood Count 10.4 K/mcL (4.3-11.1)
[2019-10-13] MEDS: Ampicillin/Sulbactam 3,000 MG in 0.9 % Sodium Chloride Mini Bag 100 ML IVPB SCH ×4 (05:04→23:11)
[2019-10-13] MEDS: D5% in Lactated Ringers 1,000 ML IVC SCH ×2 (05:04→23:11)
[2019-10-13 05:10] LABS: BUN/Creatinine Ratio 33 (6-26); Blood Urea Nitrogen 25 mg/dL (8-23); Calcium 8.6 mg/dL (8.6-10.3); Carbon Dioxide 25 mEq/L (23-29); Chloride 111 mEq/L (98-107); Glucose 156 mg/dL (70-105); Osmolality,Calculated 310 (280-300); Potassium 3.3 mEq/L (3.5-5.1); Sodium 146 mEq/L (136-145); eGFR For African Americans > 60 (> 60); eGFR For Non-African Americans > 60 (> 60)
[2019-10-13] MEDS: Pantoprazole 40 MG VIAL IVP SCH (09:00)
[2019-10-13] MEDS: Chlorhexidine Rinse 15 ML MOUTHWASH MM SCH (09:00)
[2019-10-13] MEDS ORDERED: Lidocaine -MPF 1% 5 ML AMPUL INFILT ONE (10:46)
[2019-10-13] MEDS ORDERED: Morphine Sulfate 2 MG/ML SYRINGE IVP PRN (10:48)
[2019-10-13] MEDS ORDERED: D5% in Water 1,000 ML IVC PRN (11:05)
[2019-10-13] MEDS ORDERED: *HR* Dextrose 50 % in Water (Syg) 50 ML SYRINGE IVP PRN (11:05)
[2019-10-13] MEDS ORDERED: Dextrose Gel 15 GM/37.5 ML TUBE PO PRN ×2 (11:05)
[2019-10-13 11:21] LABS: Phosphorous 2.4 mg/dL (2.7-4.5); Triglycerides 123 mg/dL (< 150)
[2019-10-13] MEDS ORDERED: Potassium Phosphate 44 MEQ in 0.9 % Sodium Chloride 250 ML IVPB ONE (11:25)
[2019-10-13] MEDS ORDERED: D10% in Water 500 ML IVC PRN (11:26)
[2019-10-13] MEDS: Insulin LISPRO 300 UNITS/3 ML VIAL SQ SCH ×3 (13:24→23:15)
[2019-10-13] MEDS ORDERED: Clinimix E 5%-15% SOLUTION 2,000 ML with MVI, adult with vitamin K 10 ML IVC SCH (17:00)
[2019-10-13] MEDS: Thiamine (B-1) 100 MG in 0.9 % Sodium Chloride 50 ML IVPB SCH ×2 (17:11→19:14)
[2019-10-13] MEDS: *HR* Metoprolol 5 MG/5 ML VIAL IVP PRN (17:31)
[2019-10-14 03:20] LABS: Basophils % 0.2 %; Eosinophils # 0.3 K/mcL (0.0-0.6); Hematocrit 21.4 % (35.3-44.9); Hemoglobin 6.8 g/dL (11.5-15.4); Immature Granulocytes % 1.4 % (0-4); Lymphocytes # 1.5 K/mcL (0.6-4.6); Lymphocytes % 17.5 %; Mean Corpuscular HGB Conc 31.8 g/dL (31.6-35.5); Mean Corpuscular Hemoglobin 33.8 pg (28.0-33.3); Mean Corpuscular Volume 106.5 fL (83.0-100.0); Monocytes # 0.5 K/mcL (0.0-1.3); Monocytes % 6.1 %; Platelet Count 228 K/mcL (140-400); Red Blood Count 2.01 M/mcL (3.82-4.97); Red Cell Distribution Width 13.7 % (11.5-14.5); Segmented Neutrophils % 71.8 %; White Blood Count 8.3 K/mcL (4.3-11.1)
[2019-10-14 03:39] LABS: BUN/Creatinine Ratio 24 (6-26); Blood Urea Nitrogen 14 mg/dL (8-23); Calcium 7.6 mg/dL (8.6-10.3); Carbon Dioxide 29 mEq/L (23-29); Chloride 108 mEq/L (98-107); Glucose 185 mg/dL (70-105); Magnesium 1.8 mg/dL (1.6-2.6); Osmolality,Calculated 301 (280-300); Phosphorous 3.3 mg/dL (2.7-4.5); Potassium 3.2 mEq/L (3.5-5.1); Sodium 143 mEq/L (136-145); eGFR For African Americans > 60 (> 60); eGFR For Non-African Americans > 60 (> 60)
[2019-10-14] MEDS: Ampicillin/Sulbactam 3,000 MG in 0.9 % Sodium Chloride Mini Bag 100 ML IVPB SCH (05:03)
[2019-10-14] MEDS: Insulin LISPRO 300 UNITS/3 ML VIAL SQ SCH ×4 (05:05→23:11)
[2019-10-14] MEDS: Pantoprazole 40 MG VIAL IVP SCH (08:40)
[2019-10-14] MEDS ORDERED: *HR* Propofol 200 MG/20 ML VIAL IVP ONE (10:37)
[2019-10-14] MEDS ORDERED: *HR* Rocuronium Bromide 50 MG/5 ML VIAL ONE (10:37)
[2019-10-14] MEDS ORDERED: Lidocaine HCL 4 ML Topical Solution (Laryng-O-Jet Kit Sterile Pak) TP ONE (10:37)
[2019-10-14] MEDS ORDERED: Neostigmine Methylsulfate 3 MG/3 ML SYRINGE ONE (10:37)
[2019-10-14] MEDS ORDERED: Dexamethasone 4 MG/ML VIAL ONE (10:37)
[2019-10-14] MEDS ORDERED: Lidocaine -MPF 2% 2 ML VIAL ONE ×2 (10:37→12:22)
[2019-10-14] MEDS ORDERED: Ondansetron 4 MG/2 ML VIAL ONE (10:37)
[2019-10-14] MEDS ORDERED: *HR* FentaNYL (PF) 100 MCG/2 ML VIAL ONE (10:37)
[2019-10-14] MEDS ORDERED: Heparin 1,000 UNITS/500 mL 500 ML ONE (11:10)
[2019-10-14 11:21] LABS: VBG Ionized Calcium 1.11 mmol/L (1.15-1.35)
[2019-10-14] MEDS ORDERED: Ampicillin/Sulbactam 3,000 MG in 0.9 % Sodium Chloride 100 ML IVPB SCH (12:00)
[2019-10-14] MEDS ORDERED: *HR* OxyCODONE Immed Rel 5 MG TABLET PO PRN ×2 (12:44→15:26)
[2019-10-14] MEDS ORDERED: *HR* HYDROmorphone 2 MG/ML SYRINGE IVP PRN ×2 (12:44→15:26)
[2019-10-14] MEDS ORDERED: Ondansetron 4 MG/2 ML VIAL IVP ONE ×2 (12:44→15:26)
[2019-10-14] MEDS ORDERED: EPHEDrine 50 MG/ML VIAL ONE (12:49)
[2019-10-14] MEDS ORDERED: Albumin Human 5% 25.0 GM/500 ML VIAL ONE (12:59)
[2019-10-14] MEDS ORDERED: Dextrose Gel 15 GM/37.5 ML TUBE PO PRN ×2 (15:26)
[2019-10-14] MEDS ORDERED: D5% in Water 1,000 ML IVC PRN (15:26)
[2019-10-14] MEDS ORDERED: Naloxone 0.4 MG/ML INJ IVP PRN (15:26)
[2019-10-14] MEDS ORDERED: Clinimix E 5%-15% SOLUTION 2,000 ML with MVI, adult with vitamin K 10 ML IVC SCH ×3 (15:26→17:00)
[2019-10-14] MEDS ORDERED: D5% in Lactated Ringers 1,000 ML IVC SCH (15:26)
[2019-10-14] MEDS ORDERED: D10% in Water 500 ML IVC PRN (15:26)
[2019-10-14] MEDS ORDERED: *HR* Dextrose 50 % in Water (Syg) 50 ML SYRINGE IVP PRN (15:26)
[2019-10-14] MEDS ORDERED: Thiamine (B-1) 100 MG in 0.9 % Sodium Chloride 50 ML IVPB SCH (16:30)
[2019-10-14] MEDS: Thiamine (B-1) 100 MG in 0.9 % Sodium Chloride 50 ML IVPB SCH (17:00)
[2019-10-14] MEDS: Ampicillin/Sulbactam 3,000 MG in 0.9 % Sodium Chloride 100 ML IVPB SCH ×2 (17:51→23:10)
[2019-10-14 19:19] LABS: Hematocrit 38.2 % (35.3-44.9)
[2019-10-14 19:24] LABS: Hemoglobin 12.7 g/dL (11.5-15.4)
[2019-10-14] MEDS: *HR* HYDROcodone/Acet 5/325 mg TABLET PO PRN (20:17)
[2019-10-14] MEDS: Dexmedetomidine HCl 400 MCG/100 ML MLS IVC SCH (20:32)
[2019-10-14] MEDS: Artificial Tears SOLN 15 ML BOTTLE BOTH EYES SCH (20:34)
[2019-10-14 20:40] LABS: Hematocrit 36.9 % (35.3-44.9); Hemoglobin 13.2 g/dL (11.5-15.4)
[2019-10-15] MEDS: Thiamine (B-1) 100 MG in 0.9 % Sodium Chloride 50 ML IVPB SCH ×2 (04:02→16:57)
[2019-10-15 04:51] LABS: BUN/Creatinine Ratio 28 (6-26); Blood Urea Nitrogen 20 mg/dL (8-23); Calcium 7.3 mg/dL (8.6-10.3); Carbon Dioxide 22 mEq/L (23-29); Chloride 103 mEq/L (98-107); Glucose 647 mg/dL (70-105); Magnesium 1.5 mg/dL (1.6-2.6); Osmolality,Calculated 317 (280-300); Phosphorous 2.1 mg/dL (2.7-4.5); Sodium 137 mEq/L (136-145); eGFR For African Americans > 60 (> 60); eGFR For Non-African Americans > 60 (> 60)
[2019-10-15] MEDS: Calcium Gluconate 1gm/50mL 1 GM/50 ML BAG IVPB SCH ×2 (05:18→06:20)
[2019-10-15] MEDS: Ampicillin/Sulbactam 3,000 MG in 0.9 % Sodium Chloride 100 ML IVPB SCH ×3 (05:18→17:20)
[2019-10-15] MEDS ORDERED: Insulin LISPRO 300 UNITS/3 ML VIAL SQ SCH (06:00)
[2019-10-15] MEDS: Pantoprazole 40 MG VIAL IVP SCH (09:32)
[2019-10-15] MEDS: Insulin DETEMIR 100 UNIT/ML X5UNITS SQ SCH ×2 (10:03→19:50)
[2019-10-15] MEDS: Insulin LISPRO 300 UNITS/3 ML VIAL SQ SCH ×3 (12:28→19:50)
[2019-10-15 13:03] LABS: Estimated Average Glucose 134 mg/dl
[2019-10-15] MEDS ORDERED: Clinimix E 5%-15% SOLUTION 2,000 ML, Parenteral Amino Acid 10% 250 ML with MVI, adult ... IVC SCH (17:00)
[2019-10-15] MEDS ORDERED: Clinimix E 5%-15% SOLUTION 2,000 ML with MVI, adult with vitamin K 10 ML IVC SCH (17:00)
[2019-10-16] MEDS: Ampicillin/Sulbactam 3,000 MG in 0.9 % Sodium Chloride 100 ML IVPB SCH ×4 (00:16→17:30)
[2019-10-16] MEDS: Insulin LISPRO 300 UNITS/3 ML VIAL SQ SCH ×6 (00:17→19:42)
[2019-10-16] MEDS: Thiamine (B-1) 100 MG in 0.9 % Sodium Chloride 50 ML IVPB SCH ×2 (03:39→15:43)
[2019-10-16 04:15] LABS: BUN/Creatinine Ratio 45 (6-26); Blood Urea Nitrogen 31 mg/dL (8-23); Calcium 7.9 mg/dL (8.6-10.3); Carbon Dioxide 27 mEq/L (23-29); Chloride 102 mEq/L (98-107); Glucose 272 mg/dL (70-105); Magnesium 2.5 mg/dL (1.6-2.6); Osmolality,Calculated 296 (280-300); Potassium 4.3 mEq/L (3.5-5.1); Sodium 135 mEq/L (136-145); eGFR For African Americans > 60 (> 60); eGFR For Non-African Americans > 60 (> 60)
[2019-10-16] MEDS: *HR* HYDROcodone/Acet 5/325 mg TABLET PO PRN (06:39)
[2019-10-16] MEDS ORDERED: Furosemide 20 MG/2 ML VIAL IVP ONE ×2 (07:56→18:23)
[2019-10-16] MEDS: Pantoprazole 40 MG VIAL IVP SCH (07:58)
[2019-10-16] MEDS: Insulin DETEMIR 100 UNIT/ML X5UNITS SQ SCH ×2 (07:59→19:42)
[2019-10-16] MEDS ORDERED: *HR* Etomidate 20 MG/10 ML AMPUL IVP ONE (08:22)
[2019-10-16] MEDS ORDERED: *HR* Midazolam HCl 2 MG/2 ML VIAL IV ONE (08:22)
[2019-10-16 11:29] LABS: Hematocrit 37.9 % (35.3-44.9); Hemoglobin 12.8 g/dL (11.5-15.4); Mean Corpuscular HGB Conc 33.8 g/dL (31.6-35.5); Mean Corpuscular Hemoglobin 32.5 pg (28.0-33.3); Mean Corpuscular Volume 96.2 fL (83.0-100.0); Mean Platelet Volume 10.3 fL (9.4-12.4); Platelet Count 268 K/mcL (140-400); Red Blood Count 3.94 M/mcL (3.82-4.97); Red Cell Distribution Width 15.1 % (11.5-14.5); White Blood Count 12.6 K/mcL (4.3-11.1)
[2019-10-16 11:47] LABS: Lymphocytes # 0.8 K/mcL (0.6-4.6); Neutrophils # 10.8 K/mcL (1.6-8.9); Platelet Estimate Normal (Normal)
[2019-10-16] MEDS ORDERED: *HR* Heparin 5,000 UNIT/ML VIAL IVP PRN (15:19)
[2019-10-16] MEDS ORDERED: *HR* Heparin 5,000 UNIT/ML VIAL IVP ONE (15:19)
[2019-10-16 16:15] LABS: VBG HCO3 26 mEq/L (21-27); VBG PCO2 47 mmHg (41-51); VBG PH 7.35 pH Units (7.32-7.42); VBG PO2 60 mmHg (25-50)
[2019-10-16 16:19] LABS: Prothrombin Time 11.5 Seconds (9.4-12.1)
[2019-10-16 16:42] LABS: Albumin 2.2 g/dL (3.5-5.7); Bilirubin,Total 0.6 mg/dL (0.3-1.0); Calcium 7.9 mg/dL (8.6-10.3); Globulin 2.3 g/dL (2.4-3.5); Potassium 4.7 mEq/L (3.5-5.1); Total Protein 4.5 g/dL (6.4-8.9)
[2019-10-16] MEDS ORDERED: Clinimix E 5%-15% SOLUTION 2,000 ML with MVI, adult with vitamin K 10 ML IVC SCH (17:00)
[2019-10-16] MEDS: Heparin 25,000 UNIT/250 ML D5W 25,000 UNIT/250 ML IV.SOLN IVC SCH (17:15)
[2019-10-16] MEDS ORDERED: Albumin 25% 25gram/100mL 25 GM/100 ML IV.SOLN IVPB ONE (18:19)
[2019-10-16] MEDS ORDERED: *HR* Metoprolol 5 MG/5 ML VIAL IVP ONE (19:30)
[2019-10-16] MEDS ORDERED: Ipratropium/Albuterol Neb 3 ML IH PRN (20:02)
[2019-10-16 20:45] LABS: ABG Base Excess 0 mEq/L (-2 to 3); ABG HCO3 24 mEq/L (21-27); ABG Oxygen Saturation 89 % (95-98); ABG PCO2 37 mmHg (35-45); ABG PH 7.42 pH Units (7.32-7.45); ABG PO2 56 mmHg (85-104); ABG TCO2 26 mEq/L (20-26)
[2019-10-16 20:52] LABS: Hematocrit 29.6 % (35.3-44.9); Mean Corpuscular HGB Conc 34.1 g/dL (31.6-35.5); Mean Corpuscular Volume 96.7 fL (83.0-100.0); Mean Platelet Volume 10.3 fL (9.4-12.4); Platelet Count 184 K/mcL (140-400); Red Blood Count 3.06 M/mcL (3.82-4.97); White Blood Count 8.1 K/mcL (4.3-11.1)
[2019-10-16 20:54] LABS: Hemoglobin 10.1 g/dL (11.5-15.4)
[2019-10-16] MEDS ORDERED: Norepinephrine 4 MG in 0.9 % Sodium Chloride 250 ML IVC SCH (21:45)
[2019-10-16] MEDS: Phenylephrine 10 MG in 0.9 % Sodium Chloride 250 ML IVC SCH (21:56)
[2019-10-16] MEDS: Norepinephrine 4 MG in 0.9 % Sodium Chloride 250 ML IVC SCH (22:00)
[2019-10-16] MEDS: FentaNYL (PF) 1,000 MCG in 0.9 % Sodium Chloride 80 ML IVC SCH (23:00)
[2019-10-16 23:41] LABS: ABG Base Excess 0 mEq/L (-2 to 3); ABG HCO3 25 mEq/L (21-27); ABG Oxygen Saturation 94 % (95-98); ABG PCO2 39 mmHg (35-45); ABG PH 7.42 pH Units (7.32-7.45); ABG PO2 71 mmHg (85-104); ABG TCO2 26 mEq/L (20-26); Blood Gas Modality ASSIST CONTROL; Blood Gas VT 380 cc
[2019-10-17] MEDS: Insulin LISPRO 300 UNITS/3 ML VIAL SQ SCH ×6 (00:07→20:28)
[2019-10-17] MEDS: Thiamine (B-1) 100 MG in 0.9 % Sodium Chloride 50 ML IVPB SCH ×2 (03:58→16:23)
[2019-10-17 04:11] LABS: Hematocrit 28.8 % (35.3-44.9); Hemoglobin 9.4 g/dL (11.5-15.4); Mean Corpuscular HGB Conc 32.6 g/dL (31.6-35.5); Mean Corpuscular Hemoglobin 32.9 pg (28.0-33.3); Mean Corpuscular Volume 100.7 fL (83.0-100.0); Mean Platelet Volume 10.6 fL (9.4-12.4); Platelet Count 181 K/mcL (140-400); Red Blood Count 2.86 M/mcL (3.82-4.97); Red Cell Distribution Width 14.9 % (11.5-14.5); White Blood Count 10.7 K/mcL (4.3-11.1)
[2019-10-17 04:24] LABS: ABG Base Excess 1 mEq/L (-2 to 3); ABG HCO3 26 mEq/L (21-27); ABG Oxygen Saturation 98 % (95-98); ABG PCO2 42 mmHg (35-45); ABG PO2 110 mmHg (85-104); ABG TCO2 27 mEq/L (20-26); Blood Gas Modality ASSIST CONTROL; Blood Gas VT 380 cc
[2019-10-17 04:25] LABS: Calcium 7.9 mg/dL (8.6-10.3); Magnesium 2.5 mg/dL (1.6-2.6); Phosphorous 4.7 mg/dL (2.7-4.5)
[2019-10-17] MEDS: Ampicillin/Sulbactam 3,000 MG in 0.9 % Sodium Chloride 100 ML IVPB SCH ×2 (06:23→17:37)
[2019-10-17] MEDS: Dexmedetomidine HCl 400 MCG/100 ML MLS IVC SCH ×2 (06:25→18:20)
[2019-10-17] MEDS: FentaNYL (PF) 1,000 MCG in 0.9 % Sodium Chloride 80 ML IVC SCH ×2 (07:36→17:17)
[2019-10-17] MEDS ORDERED: Aminoglycoside Consult 1 EACH MC ONE (07:38)
[2019-10-17 08:12] LABS: Bilirubin,Urine Negative (Negative); Blood,Urine Negative (Negative); Color,Urine Dark Yellow (Yellow); Glucose,Urine (UA) Normal (Normal); Ketones,Urine Trace mg/dL (Negative); Leukocyte Esterase,Urine Negative (Negative); Nitrite,Urine Negative (Negative); Protein,Urine Trace mg/dL (Neg-Trace); Specific Gravity,Urine 1.029 (1.010-1.025); Urobilinogen,Urine Normal (Normal)
[2019-10-17 08:15] LABS: Bacteria,Urine None Seen per hpf (None-Few); Squamous Epithelial Cell,Urine Many per lpf (None-Few)
[2019-10-17 08:16] LABS: Clarity,Urine Slightly Cloudy (Clear)
[2019-10-17] MEDS: Pantoprazole 40 MG VIAL IVP SCH (09:07)
[2019-10-17] MEDS: Insulin DETEMIR 100 UNIT/ML X5UNITS SQ SCH ×2 (09:07→20:28)
[2019-10-17] MEDS: Norepinephrine 4 MG in 0.9 % Sodium Chloride 250 ML IVC SCH ×3 (09:20→22:25)
[2019-10-17] MEDS ORDERED: Artificial Tears SOLN 15 ML BOTTLE BOTH EYES PRN (09:56)
[2019-10-17 10:40] LABS: Hematocrit 28.7 % (35.3-44.9); Hemoglobin 9.5 g/dL (11.5-15.4)
[2019-10-17] MEDS: Artificial Tears SOLN 15 ML BOTTLE BOTH EYES SCH ×3 (11:59→20:28)
[2019-10-17] MEDS ORDERED: Clinimix E 5%-15% SOLUTION 2,000 ML with MVI, adult with vitamin K 10 ML IVC SCH (17:00)
[2019-10-17] MEDS: Phenylephrine 10 MG in 0.9 % Sodium Chloride 250 ML IVC SCH (18:16)
[2019-10-17] MEDS: Chlorhexidine Rinse 15 ML MOUTHWASH MM SCH (20:28)
[2019-10-18] MEDS: Insulin LISPRO 300 UNITS/3 ML VIAL SQ SCH ×7 (00:02→23:52)
[2019-10-18] MEDS: Artificial Tears SOLN 15 ML BOTTLE BOTH EYES SCH ×7 (00:02→23:52)
[2019-10-18] MEDS: FentaNYL (PF) 1,000 MCG in 0.9 % Sodium Chloride 80 ML IVC SCH ×2 (01:29→17:50)
[2019-10-18 04:12] LABS: Mean Corpuscular Hemoglobin 33.1 pg (28.0-33.3); Mean Corpuscular Volume 103.3 fL (83.0-100.0); Mean Platelet Volume 11.1 fL (9.4-12.4); Platelet Count 146 K/mcL (140-400); Red Blood Count 2.42 M/mcL (3.82-4.97); Red Cell Distribution Width 14.6 % (11.5-14.5); White Blood Count 10.6 K/mcL (4.3-11.1)
[2019-10-18] MEDS: Heparin 25,000 UNIT/250 ML D5W 25,000 UNIT/250 ML IV.SOLN IVC SCH ×2 (04:13→16:46)
[2019-10-18 04:31] LABS: Calcium 7.5 mg/dL (8.6-10.3); Magnesium 2.4 mg/dL (1.6-2.6); Phosphorous 5.1 mg/dL (2.7-4.5); Potassium 4.6 mEq/L (3.5-5.1)
[2019-10-18 04:43] LABS: ABG Base Excess -4 mEq/L (-2 to 3); ABG HCO3 22 mEq/L (21-27); ABG Oxygen Saturation 98 % (95-98); ABG PCO2 41 mmHg (35-45); ABG PH 7.34 pH Units (7.32-7.45); ABG PO2 104 mmHg (85-104); ABG TCO2 23 mEq/L (20-26); Blood Gas Modality AF; Blood Gas VT 380 cc
[2019-10-18 05:09] LABS: Lymphocytes # 0.4 K/mcL (0.6-4.6); Monocytes # 0.2 K/mcL (0.0-1.3); Neutrophils # 9.3 K/mcL (1.6-8.9)
[2019-10-18 05:10] LABS: Platelet Estimate Slight Decrease (Normal); Toxic Granulation Present (Not Present); Toxic Vacuolation Present (Not Present)
[2019-10-18] MEDS: *HR* Heparin 5,000 UNIT/ML VIAL IVP PRN ×2 (05:53→15:11)
[2019-10-18 07:57] LABS: Bilirubin,Direct 0.2 mg/dL (0.0-0.2); Bilirubin,Indirect 0.4 mg/dL (0.0-1.0); Bilirubin,Total 0.6 mg/dL (0.3-1.0); Globulin 2.1 g/dL (2.4-3.5); Total Protein 4.1 g/dL (6.4-8.9)
[2019-10-18] MEDS: Pantoprazole 40 MG VIAL IVP SCH (08:25)
[2019-10-18] MEDS: Piperacillin/Tazobactam 3.375 GM in 0.9 % Sodium Chloride Mini Bag 100 ML IVPB SCH ×3 (08:25→20:38)
[2019-10-18] MEDS: Chlorhexidine Rinse 15 ML MOUTHWASH MM SCH ×2 (08:25→20:37)
[2019-10-18] MEDS: Dexmedetomidine HCl 400 MCG/100 ML MLS IVC SCH ×2 (08:36→21:30)
[2019-10-18] MEDS: Insulin DETEMIR 100 UNIT/ML X5UNITS SQ SCH ×2 (08:53→20:36)
[2019-10-18 09:04] LABS: Hematocrit 24.5 % (35.3-44.9); Hemoglobin 8.2 g/dL (11.5-15.4)
[2019-10-18] MEDS: Norepinephrine 4 MG in 0.9 % Sodium Chloride 250 ML IVC SCH (13:30)
[2019-10-18] MEDS ORDERED: Clinimix 5%-20% SOLUTION 2,000 ML with MVI, adult with vitamin K 10 ML, Sodium Acetat... IVC SCH (17:00)
[2019-10-18] MEDS: Phenylephrine 10 MG in 0.9 % Sodium Chloride 250 ML IVC SCH (17:26)
[2019-10-19 03:39] LABS: Basophils % 0.2 %; Eosinophils # 0.1 K/mcL (0.0-0.6); Eosinophils % 1.2 %; Hematocrit 23.7 % (35.3-44.9); Hemoglobin 7.4 g/dL (11.5-15.4); Immature Granulocytes % 3.5 % (0-4); Lymphocytes # 0.6 K/mcL (0.6-4.6); Lymphocytes % 5.9 %; Mean Corpuscular HGB Conc 31.2 g/dL (31.6-35.5); Mean Corpuscular Hemoglobin 32.3 pg (28.0-33.3); Mean Corpuscular Volume 103.5 fL (83.0-100.0); Mean Platelet Volume 11.4 fL (9.4-12.4); Monocytes # 0.7 K/mcL (0.0-1.3); Neutrophils # 7.9 K/mcL (1.6-8.9); Platelet Count 141 K/mcL (140-400); Red Blood Count 2.29 M/mcL (3.82-4.97); Red Cell Distribution Width 14.6 % (11.5-14.5); Segmented Neutrophils % 82.2 %; White Blood Count 9.6 K/mcL (4.3-11.1)
[2019-10-19 03:47] LABS: Calcium 7.5 mg/dL (8.6-10.3); Magnesium 2.5 mg/dL (1.6-2.6); Potassium 4.8 mEq/L (3.5-5.1)
[2019-10-19] MEDS: *HR* Heparin 5,000 UNIT/ML VIAL IVP PRN (03:55)
[2019-10-19] MEDS: Insulin LISPRO 300 UNITS/3 ML VIAL SQ SCH ×6 (04:00→23:47)
[2019-10-19] MEDS: Artificial Tears SOLN 15 ML BOTTLE BOTH EYES SCH ×6 (04:00→23:43)
[2019-10-19 04:32] LABS: ABG Base Excess -2 mEq/L (-2 to 3); ABG HCO3 24 mEq/L (21-27); ABG Oxygen Saturation 97 % (95-98); ABG PCO2 42 mmHg (35-45); ABG PH 7.36 pH Units (7.32-7.45); ABG PO2 96 mmHg (85-104); ABG TCO2 25 mEq/L (20-26); Blood Gas Modality AF; Blood Gas VT 380 cc
[2019-10-19 05:04] LABS: Platelet Estimate Normal (Normal); Toxic Granulation Present (Not Present)
[2019-10-19 07:23] LABS: Uric Acid 3.2 mg/dL (2.3-7.6)
[2019-10-19] MEDS: Dexmedetomidine HCl 400 MCG/100 ML MLS IVC SCH ×2 (07:30→20:37)
[2019-10-19] MEDS: Piperacillin/Tazobactam 3.375 GM in 0.9 % Sodium Chloride Mini Bag 100 ML IVPB SCH ×2 (08:12→20:37)
[2019-10-19] MEDS: Pantoprazole 40 MG VIAL IVP SCH (08:13)
[2019-10-19] MEDS: Chlorhexidine Rinse 15 ML MOUTHWASH MM SCH ×2 (08:13→20:37)
[2019-10-19] MEDS: Insulin DETEMIR 100 UNIT/ML X5UNITS SQ SCH ×2 (08:34→20:37)
[2019-10-19] MEDS ORDERED: Insulin DETEMIR 100 UNIT/ML X5UNITS SQ ONE (09:30)
[2019-10-19] MEDS: Heparin 25,000 UNIT/250 ML D5W 25,000 UNIT/250 ML IV.SOLN IVC SCH (11:45)
[2019-10-19] MEDS: FentaNYL (PF) 1,000 MCG in 0.9 % Sodium Chloride 80 ML IVC SCH (12:53)
[2019-10-19] MEDS ORDERED: Clinimix 5%-20% SOLUTION 2,000 ML with MVI, adult with vitamin K 10 ML, Sodium Phosph... IVC SCH (17:00)
[2019-10-19 17:16] LABS: Hematocrit 23.2 % (35.3-44.9); Hemoglobin 7.5 g/dL (11.5-15.4); Mean Corpuscular HGB Conc 32.3 g/dL (31.6-35.5); Mean Corpuscular Hemoglobin 32.5 pg (28.0-33.3); Mean Corpuscular Volume 100.4 fL (83.0-100.0); Mean Platelet Volume 11.7 fL (9.4-12.4); Nucleated Red Blood Cells 0.3 /100 WBC (0); Platelet Count 147 K/mcL (140-400); Red Blood Count 2.31 M/mcL (3.82-4.97); Red Cell Distribution Width 14.8 % (11.5-14.5); White Blood Count 7.9 K/mcL (4.3-11.1)
[2019-10-19 17:34] LABS: Monocytes # 0.8 K/mcL (0.0-1.3); Neutrophils # 6.2 K/mcL (1.6-8.9); Platelet Estimate Normal (Normal); Toxic Granulation Present (Not Present)
[2019-10-19] MEDS: Phenylephrine 10 MG in 0.9 % Sodium Chloride 250 ML IVC SCH (18:07)
[2019-10-19] MEDS: Norepinephrine 4 MG in 0.9 % Sodium Chloride 250 ML IVC SCH (19:07)
[2019-10-20] MEDS: Dexmedetomidine HCl 400 MCG/100 ML MLS IVC SCH (03:49)
[2019-10-20] MEDS: Artificial Tears SOLN 15 ML BOTTLE BOTH EYES SCH ×5 (03:49→20:58)
[2019-10-20] MEDS: Insulin LISPRO 300 UNITS/3 ML VIAL SQ SCH ×5 (03:50→20:58)
[2019-10-20 04:20] LABS: ABG Base Excess 1 mEq/L (-2 to 3); ABG HCO3 25 mEq/L (21-27); ABG Oxygen Saturation 98 % (95-98); ABG PCO2 39 mmHg (35-45); ABG PH 7.42 pH Units (7.32-7.45); ABG PO2 98 mmHg (85-104); ABG TCO2 26 mEq/L (20-26); Blood Gas Modality ASSIST CONTROL; Blood Gas VT 380 cc
[2019-10-20 04:49] LABS: Hematocrit 23.7 % (35.3-44.9); Hemoglobin 7.4 g/dL (11.5-15.4); Mean Corpuscular HGB Conc 31.2 g/dL (31.6-35.5); Mean Corpuscular Hemoglobin 32.3 pg (28.0-33.3); Mean Corpuscular Volume 103.5 fL (83.0-100.0); Mean Platelet Volume 11.9 fL (9.4-12.4); Platelet Count 148 K/mcL (140-400); Red Blood Count 2.29 M/mcL (3.82-4.97); Red Cell Distribution Width 14.9 % (11.5-14.5); White Blood Count 7.9 K/mcL (4.3-11.1)
[2019-10-20 05:11] LABS: Eosinophils # 0.3 K/mcL (0.0-0.6); Lymphocytes # 0.8 K/mcL (0.6-4.6); Monocytes # 0.3 K/mcL (0.0-1.3); Neutrophils # 6.5 K/mcL (1.6-8.9); Platelet Estimate Normal (Normal); Toxic Granulation Present (Not Present)
[2019-10-20 05:27] LABS: Calcium 7.7 mg/dL (8.6-10.3); Magnesium 2.6 mg/dL (1.6-2.6); Phosphorous 3.9 mg/dL (2.7-4.5); Potassium 4.8 mEq/L (3.5-5.1)
[2019-10-20] MEDS: Piperacillin/Tazobactam 3.375 GM in 0.9 % Sodium Chloride Mini Bag 100 ML IVPB SCH ×2 (06:56→20:57)
[2019-10-20] MEDS: Chlorhexidine Rinse 15 ML MOUTHWASH MM SCH ×2 (07:15→20:57)
[2019-10-20] MEDS: Insulin DETEMIR 100 UNIT/ML X5UNITS SQ SCH ×2 (07:15→20:56)
[2019-10-20] MEDS: Pantoprazole 40 MG VIAL IVP SCH (07:15)
[2019-10-20] MEDS: FentaNYL (PF) 1,000 MCG in 0.9 % Sodium Chloride 80 ML IVC SCH (15:13)
[2019-10-20] MEDS: Heparin 25,000 UNIT/250 ML D5W 25,000 UNIT/250 ML IV.SOLN IVC SCH (15:15)
[2019-10-20] MEDS: Phenylephrine 10 MG in 0.9 % Sodium Chloride 250 ML IVC SCH (16:09)
[2019-10-20] MEDS ORDERED: Clinimix 5%-20% SOLUTION 2,000 ML with MVI, adult with vitamin K 10 ML, Sodium Phosph... IVC SCH (17:00)
[2019-10-21] MEDS: Dexmedetomidine HCl 400 MCG/100 ML MLS IVC SCH (00:18)
[2019-10-21] MEDS: Insulin LISPRO 300 UNITS/3 ML VIAL SQ SCH ×6 (00:19→21:47)
[2019-10-21] MEDS: Artificial Tears SOLN 15 ML BOTTLE BOTH EYES SCH ×7 (00:19→23:44)
[2019-10-21 04:42] LABS: ABG Base Excess -1 mEq/L (-2 to 3); ABG HCO3 24 mEq/L (21-27); ABG Oxygen Saturation 99 % (95-98); ABG PCO2 38 mmHg (35-45); ABG PO2 114 mmHg (85-104); ABG TCO2 25 mEq/L (20-26); Blood Gas Modality ASSIST CONTROL; Blood Gas VT 380 cc
[2019-10-21 04:58] LABS: Hematocrit 22.5 % (35.3-44.9)
[2019-10-21 05:21] LABS: Calcium 7.9 mg/dL (8.6-10.3); Magnesium 2.5 mg/dL (1.6-2.6); Phosphorous 4.6 mg/dL (2.7-4.5); Potassium 4.4 mEq/L (3.5-5.1)
[2019-10-21] MEDS: Piperacillin/Tazobactam 3.375 GM in 0.9 % Sodium Chloride Mini Bag 100 ML IVPB SCH ×2 (07:52→21:45)
[2019-10-21] MEDS: Chlorhexidine Rinse 15 ML MOUTHWASH MM SCH ×2 (07:53→21:48)
[2019-10-21] MEDS: Pantoprazole 40 MG VIAL IVP SCH (07:53)
[2019-10-21] MEDS: Insulin DETEMIR 100 UNIT/ML X5UNITS SQ SCH ×2 (07:55→22:05)
[2019-10-21] MEDS ORDERED: Furosemide 40 MG/4 ML VIAL IVP ONE (12:30)
[2019-10-21] MEDS ORDERED: Furosemide 20 MG/2 ML VIAL IVP ONE (12:36)
[2019-10-21] MEDS ORDERED: 0.9 % Sodium Chloride 500 ML ONE (14:50)
[2019-10-21] MEDS ORDERED: Clinimix 5%-20% SOLUTION 2,000 ML with MVI, adult with vitamin K 10 ML, Sodium Phosph... IVC SCH (17:00)
[2019-10-21] MEDS: Heparin 25,000 UNIT/250 ML D5W 25,000 UNIT/250 ML IV.SOLN IVC SCH (17:27)
[2019-10-21] MEDS: Phenylephrine 10 MG in 0.9 % Sodium Chloride 250 ML IVC SCH (18:58)
[2019-10-21] MEDS: *HR* Metoprolol 5 MG/5 ML VIAL IVP PRN (21:46)
[2019-10-21] MEDS: FentaNYL (PF) 1,000 MCG in 0.9 % Sodium Chloride 80 ML IVC SCH (22:39)
[2019-10-21] MEDS: Norepinephrine 4 MG in 0.9 % Sodium Chloride 250 ML IVC SCH (23:45)
[2019-10-22] MEDS: Insulin LISPRO 300 UNITS/3 ML VIAL SQ SCH ×6 (00:20→20:41)
[2019-10-22 03:15] LABS: Calcium 7.9 mg/dL (8.6-10.3); Magnesium 2.3 mg/dL (1.6-2.6); Phosphorous 5.1 mg/dL (2.7-4.5); Potassium 3.9 mEq/L (3.5-5.1)
[2019-10-22] MEDS: Artificial Tears SOLN 15 ML BOTTLE BOTH EYES SCH ×5 (05:27→20:41)
[2019-10-22] MEDS: *HR* Metoprolol 5 MG/5 ML VIAL IVP PRN (05:35)
[2019-10-22] MEDS: Piperacillin/Tazobactam 3.375 GM in 0.9 % Sodium Chloride Mini Bag 100 ML IVPB SCH ×2 (08:54→20:41)
[2019-10-22] MEDS: Chlorhexidine Rinse 15 ML MOUTHWASH MM SCH (08:55)
[2019-10-22] MEDS: Pantoprazole 40 MG VIAL IVP SCH (08:55)
[2019-10-22] MEDS: Insulin DETEMIR 100 UNIT/ML X5UNITS SQ SCH (08:58)
[2019-10-22 09:08] LABS: Hematocrit 32.6 % (35.3-44.9); Mean Corpuscular HGB Conc 33.7 g/dL (31.6-35.5); Mean Corpuscular Hemoglobin 31.8 pg (28.0-33.3); Mean Platelet Volume 11.6 fL (9.4-12.4); Nucleated Red Blood Cells 0.1 /100 WBC (0); Platelet Count 244 K/mcL (140-400); Red Blood Count 3.46 M/mcL (3.82-4.97)
[2019-10-22 09:17] LABS: Mean Corpuscular Volume 94.2 fL (83.0-100.0); White Blood Count 20.1 K/mcL (4.3-11.1)
[2019-10-22 09:28] LABS: Albumin 2.2 g/dL (3.5-5.7); Albumin/Globulin Ratio 0.7 (1.1-2.2); Bilirubin,Total 0.7 mg/dL (0.3-1.0); Globulin 3.1 g/dL (2.4-3.5); Magnesium 2.2 mg/dL (1.6-2.6); Potassium 3.9 mEq/L (3.5-5.1); Total Protein 5.3 g/dL (6.4-8.9)
[2019-10-22 09:31] LABS: Platelet Estimate Normal (Normal); Polychromasia 1+ (Not Present)
[2019-10-22 09:33] LABS: Lymphocytes # 0.8 K/mcL (0.6-4.6); Neutrophils # 19.3 K/mcL (1.6-8.9); Toxic Granulation Present (Not Present)
[2019-10-22] MEDS: Heparin 25,000 UNIT/250 ML D5W 25,000 UNIT/250 ML IV.SOLN IVC SCH ×2 (12:03→16:28)
[2019-10-22] MEDS ORDERED: Clinimix 5%-20% SOLUTION 2,000 ML with MVI, adult with vitamin K 10 ML, Sodium Phosph... IVC SCH (15:31)
[2019-10-22] MEDS ORDERED: Naloxone 0.4 MG/ML INJ IVP PRN (15:31)
[2019-10-22] MEDS ORDERED: Ipratropium/Albuterol Neb 3 ML IH PRN (15:31)
[2019-10-22] MEDS ORDERED: Artificial Tears SOLN 15 ML BOTTLE BOTH EYES PRN (15:31)
[2019-10-22] MEDS ORDERED: D10% in Water 500 ML IVC PRN (15:31)
[2019-10-22] MEDS ORDERED: *HR* Heparin 5,000 UNIT/ML VIAL IVP PRN ×2 (15:31)
[2019-10-22] MEDS ORDERED: *HR* Metoprolol 5 MG/5 ML VIAL IVP PRN (15:31)
[2019-10-22] MEDS ORDERED: Dextrose Gel 15 GM/37.5 ML TUBE PO PRN ×2 (15:31)
[2019-10-22] MEDS ORDERED: D5% in Water 1,000 ML IVC PRN (15:31)
[2019-10-22] MEDS ORDERED: Clinimix 5%-20% SOLUTION 2,000 ML with MVI, adult with vitamin K 10 ML, Trace Element... IVC SCH ×2 (17:00)
[2019-10-22] MEDS ORDERED: Insulin DETEMIR 100 UNIT/ML X5UNITS SQ SCH (21:00)
[2019-10-23] MEDS: Artificial Tears SOLN 15 ML BOTTLE BOTH EYES SCH ×6 (00:56→20:07)
[2019-10-23] MEDS: Insulin LISPRO 300 UNITS/3 ML VIAL SQ SCH ×5 (00:56→18:50)
[2019-10-23 03:35] LABS: Basophils % 0.5 %; Mean Platelet Volume 11.5 fL (9.4-12.4); Red Cell Distribution Width 15.9 % (11.5-14.5)
[2019-10-23 03:37] LABS: Basophils # 0.1 K/mcL (0.0-0.2); Eosinophils # 0.1 K/mcL (0.0-0.6); Eosinophils % 0.4 %; Hematocrit 33.2 % (35.3-44.9); Hemoglobin 10.8 g/dL (11.5-15.4); Immature Granulocytes % 3.7 % (0-4); Lymphocytes % 7.1 %; Mean Corpuscular HGB Conc 32.5 g/dL (31.6-35.5); Mean Corpuscular Hemoglobin 31.9 pg (28.0-33.3); Mean Corpuscular Volume 97.9 fL (83.0-100.0); Monocytes # 0.8 K/mcL (0.0-1.3); Monocytes % 2.8 %; Neutrophils # 24.1 K/mcL (1.6-8.9); Platelet Count 311 K/mcL (140-400); Red Blood Count 3.39 M/mcL (3.82-4.97); Segmented Neutrophils % 85.5 %; White Blood Count 28.2 K/mcL (4.3-11.1)
[2019-10-23] MEDS ORDERED: Acetaminophen IV 500 MG/50 ML INFUS..BTL IVPB ONE (03:46)
[2019-10-23 04:01] LABS: Albumin 2.3 g/dL (3.5-5.7); Albumin/Globulin Ratio 0.7 (1.1-2.2); Bilirubin,Total 0.7 mg/dL (0.3-1.0); Calcium 8.2 mg/dL (8.6-10.3); Globulin 3.1 g/dL (2.4-3.5); Potassium 3.7 mEq/L (3.5-5.1); Total Protein 5.4 g/dL (6.4-8.9)
[2019-10-23 04:57] LABS: Platelet Estimate Normal (Normal); Toxic Granulation Present (Not Present)
[2019-10-23] MEDS ORDERED: Insulin DETEMIR 100 UNIT/ML X5UNITS SQ SCH ×2 (09:00→21:00)
[2019-10-23] MEDS ORDERED: 0.9 % Sodium Chloride Mini Bag 100 ML ONE (09:12)
[2019-10-23] MEDS: Piperacillin/Tazobactam 3.375 GM in 0.9 % Sodium Chloride Mini Bag 100 ML IVPB SCH (09:20)
[2019-10-23] MEDS: Heparin 25,000 UNIT/250 ML D5W 25,000 UNIT/250 ML IV.SOLN IVC SCH (09:21)
[2019-10-23] MEDS: Pantoprazole 40 MG VIAL IVP SCH (09:22)
[2019-10-23] MEDS ORDERED: *HR* Dextrose 50 % in Water (Vial) 50 ML VIAL IVC ONE (10:48)
[2019-10-23] MEDS ORDERED: Clinimix 5%-20% SOLUTION 2,000 ML with MVI, adult with vitamin K 10 ML, Trace Element... IVC SCH ×2 (17:00)
[2019-10-23] MEDS: *HR* Dextrose 50 % in Water (Syg) 50 ML SYRINGE IVP PRN ×2 (19:50→22:24)
[2019-10-23] MEDS ORDERED: D5% in Water 1,000 ML IVC SCH (20:45)
[2019-10-24] MEDS: D10% in Water 500 ML IVC SCH ×2 (00:13→06:11)
[2019-10-24] MEDS: Artificial Tears SOLN 15 ML BOTTLE BOTH EYES SCH ×6 (01:26→23:14)
[2019-10-24] MEDS ORDERED: Scopolamine Patch 1.5 MG PATCH.TD72 TD ONE (04:53)
[2019-10-24] MEDS: Atropine Sulfate 1% 40 DROP/2 ML BOTTLE SL PRN ×2 (06:11→12:52)
[2019-10-24] MEDS: Pantoprazole 40 MG VIAL IVP SCH (09:38)
[2019-10-24] MEDS ORDERED: Clinimix 5%-20% SOLUTION 2,000 ML with MVI, adult with vitamin K 10 ML, Trace Element... IVC SCH ×2 (17:00)
[2019-10-24] MEDS: Haloperidol Lactate 5 MG/ML VIAL IVP PRN (18:03)
[2019-10-25] MEDS: Haloperidol Lactate 5 MG/ML VIAL IVP PRN ×2 (00:10→05:34)
[2019-10-25] MEDS: Atropine Sulfate 1% 40 DROP/2 ML BOTTLE SL PRN (00:11)
[2019-10-25] MEDS: Artificial Tears SOLN 15 ML BOTTLE BOTH EYES SCH ×3 (05:29→08:20)
[2019-10-25 07:14] VITALS: BP 138/71
[2019-10-25] MEDS: Pantoprazole 40 MG VIAL IVP SCH (08:19)
== END 2019-10-25 11:33 | disposition hospice, inpatient (51) | DRG 326 ==
LOC: 3ANU 23:56 → EMEROOARM 23:56 → SUATTDRO 10-09 05:16 → 3ANU 10-09 05:46 → SUATTDRO 10-10 14:27 → ICNU 10-11 15:26 → 2ANU 10-22 15:45
PROVIDERS: ADMIT Internal Medicine; ATTEND Internal Medicine
PROC: ENDOEFB (2019-10-11 13:00)

== ENCOUNTER 2019-10-25 09:56 | Inpatient (IN) ==
[2019-10-25] MEDS ORDERED: Bisacodyl 10 MG RECTAL SUPPOSITORY RC PRN (10:47)
[2019-10-25] MEDS ORDERED: Ipratropium/Albuterol Neb 3 ML IH PRN (10:47)
[2019-10-25] MEDS ORDERED: Atropine Sulfate 1% 40 DROP/2 ML BOTTLE SL PRN (10:47)
[2019-10-25] MEDS: Haloperidol Oral Conc 10 MG/5 ML UDC PO SCH ×3 (12:22→23:00)
[2019-10-26] MEDS: Haloperidol Oral Conc 10 MG/5 ML UDC PO SCH ×4 (05:04→22:48)
[2019-10-27] MEDS: Haloperidol Oral Conc 10 MG/5 ML UDC PO SCH ×4 (04:54→22:22)
[2019-10-27] MEDS: Haloperidol Lactate 5 MG/ML VIAL IVP PRN ×2 (08:32→16:30)
[2019-10-27] MEDS ORDERED: *HR* LORazepam 2 MG/ML VIAL IVP ONE (09:28)
[2019-10-27] MEDS ORDERED: *HR* LORazepam 2 MG/ML VIAL IVP PRN (16:18)
[2019-10-27 20:38] VITALS: BP 112/77
[2019-10-28] MEDS: Haloperidol Lactate 5 MG/ML VIAL IVP PRN (00:40)
== END 2019-10-28 04:07 | disposition expired | DRG 951 ==
LOC: 2ANU 11:45
PROVIDERS: ADMIT Internal Medicine Hospice and Palliative Medicine; ATTEND Internal Medicine Hospice and Palliative Medicine